=== PATIENT | female | born 1980 | race Caucasian/White ===

== ENCOUNTER 2017-01-14 07:15 | Outpatient (CLI) | payer MEDICAID ==
[~2017-01-14] VITALS: Ht 142.2 cm; Wt 71.5 kg
[2017-01-14] MEDS ORDERED: PREN-93 PO (07:28)
[2017-01-14 07:29] VITALS: Ht 142.2 cm; Wt 71.5 kg
[2017-01-14 07:30] VITALS: BP 110/65; PULSE 81; RESP 18
[2017-01-14] MEDS ORDERED: LACTATED RINGER'S 1,000 ML IV ONE (08:00)
--- NOTE | 2017-01-14 08:38 | RADRPT ---
PROCEDURE: Biophysical profile CLINICAL INDICATION: Contractions. Clinical estimate gestational age is 34 weeks 2 days with estimat ed date of delivery 02/23/2017 TECHNIQUE: Color and mueller-scale ultrasound images of an intrauterine gestation were obtained. COMPARISON: None available FINDINGS: A single live intrauterine gestation is identified in cephalic position with an estimated hear t rate of 144 beats per minute. The placenta is located anteriorly and is grade II. SUKHDEV is 11.12 cm. movement 2/2. tone 2/2. breathing movement 2/2. Qualitative AFV 2/2 Total biophysical profile 09/20 IMPRESSION: 09/20 biophysical profile. RPTAT: HJES .Reymundo Perez MD, Date Time Electronically viewed and signed by .Reymundo Perez MD, on 01/14/2017 08:38 .S/
[2017-01-14 11:01] LABS: ADD UMIC YES; UR ASCORBIC ACID NEGATIVE (NEGATIVE); UR BILIRUBIN (Dip) NEGATIVE (NEGATIVE); UR BLOOD (Dip) 2+ mg/dL (NEGATIVE); UR CLARITY CLEAR (CLEAR); UR COLOR YELLOW (YELLOW); UR GLUCOSE (Dip) NEGATIVE (NEGATIVE); UR KETONES (Dip) NEGATIVE (NEGATIVE); UR LEUKOCYTE ESTERASE (Dip) 3+ Leu/ul (NEGATIVE); UR NITRITE (Dip) NEGATIVE (NEGATIVE); UR RBC 2 /HPF (0-5); UR SPECIFIC GRAVITY (Dip) 1.009 (1.003-1.030); UR SQUAMOUS EPITHELIAL CELL FEW /HPF (FEW); UR TOTAL PROTEIN (Dip) NEGATIVE (NEGATIVE); UR UROBILINOGEN (Dip) NEGATIVE (NEGATIVE)
--- NOTE | 2017-01-14 11:14 | TRIAGE ---
OB Triage Datetime Report Generated by CPN: 01/14/2017 11:14 Datetime: 01/14/2017 10:30 Stage of : OB Triage Maternal Assessment Level of Consciousness: Fully Conscious Labor Evaluation Frequency: 4-10 Monitor Mode: External Duration (sec)2399: 40-100 Quality: Moderate Resting Tone Bedias: Relaxed Heart Rate FHR Baseline Rate: 145 Monitor Mode: External US Variability: Moderate 6-25 bpm Accelerations: 15X15 Decelerations: Variable Pain Assessment Pain Scale: 0 Pain Goal: 3 Membrane Status: Intact Vaginal Bleeding: None Datetime: 01/14/2017 09:30 Stage of : OB Triage Maternal Assessment Level of Consciousness: Fully Conscious Labor Evaluation Frequency: 3-10 Monitor Mode: External Duration (sec)2399: 50-110 Quality: Moderate Resting Tone Bedias: Relaxed Heart Rate FHR Baseline Rate: 145 Monitor Mode: External US Variability: Moderate 6-25 bpm Accelerations: 15X15 Decelerations: Variable Pain Assessment Pain Scale: 0 Pain Goal: 3 Membrane Status: Intact Vaginal Bleeding: None Datetime: 01/14/2017 08:40 Vaginal Exam Dilatation (cms): 0.0 Station: -3 Exam By: MANSIEMANI/DEDEAN Vaginal Bleeding: Normal Show Cervix, Consistency: Soft Cervix, Position: Midposition Datetime: 01/14/2017 08:30 Stage of : OB Triage Maternal Assessment Level of Consciousness: Fully Conscious Labor Evaluation Frequency: 1-10 Monitor Mode: External Quality: Moderate Resting Tone Bedias: Relaxed Heart Rate FHR Baseline Rate: 145 Monitor Mode: External US Variability: Moderate 6-25 bpm Accelerations: 15X15 Decelerations: Variable Pain Assessment Pain Scale: 0 Pain Goal: 3 Membrane Status: Intact Vaginal Bleeding: None Datetime: 01/14/2017 07:25 Assessment Type: Triage Maternal Assessment Level of Consciousness: Fully Conscious DTR's/Clonus: DTRs 2+; No Clonus Headache: Denies Blurred Vision: No Respiratory Effort: Unlabored; Regular Rhythm; Equal Expansion Breath Sounds, Left: Clear and Equal Breath Sounds, Right: Clear and Equal Nausea/Vomiting: Denies RUQ Epigastric Pain: Denies Lower Extremities Edema: None Degree: None Upper Extremities Edema: None Degree: None Facial Edema: None Fall Risk Assessment History of Falling: (0) No Secondary Diagnosis: (0) No Ambulatory Aid: (0) Bedrest/Nurse Assist IV Therapy: (0) No Gait: (0) Normal/Bedrest/Immobile Mental Status: (0) Oriented to Own Ability Fall Score: 0 Fall Risk Score Definition: No Risk: No action required Datetime: 01/14/2017 07:24 Time of Arrival: 01/14/2017 07:07 EGA: 34.2 Arrived By: Ambulatory Arrived From: Home Chief Complaint: PT HERE C/O UC'S AND SPOTTING Movement: Present Contractions: Irregular Rupture of Membranes: Denies Vaginal Bleeding: None Vaginal Discharge: Present Recent Sexual Intercouse: Yes Abdominal Trauma: Not Applicable Patient Complaints: Contractions; Cramping; Back Pain Time Provider Notified: 01/14/2017 07:45 Provider Notified: SKYLAR Initial Plan: IV HYDRATION/BPP/SVE Datetime: 01/14/2017 07:21 Monitor Mode: External Monitor Mode: External US
[2017-01-14] MEDS ORDERED: NITR-58 PO (11:19)
--- NOTE | 2017-01-14 12:12 | CONS ---
Date/Time of Note Date/Time of Note DATE: 01/14/17 TIME: 12:00 Consultation Date/Type/Reason Admit Date/Time January 14, 2017 OB triage consult This patient is 36 years old 3 para 1 1 living 1 with a spontaneous vaginal delivery on the first . Her estimated date of confinement is 02/23/2017 which makes her 34 weeks and 2 days today. She came to triage complaining of a vaginal spotting and uterine contractions. On examination she is a well-developed well-nourished patient at the third trimester. Her abdomen is soft ,very few contractions f,etal heart tone is normal with good variability occasional acceleration no decelerations. No CVA tenderness. Her general vital signs appears to be normal with blood pressure 110/65, pulse rate of 81, respiration 18, temperature 98.7, oxygen saturation at the room temperature was 98%. On questioning she admits that she did have a intercourse last night On pelvic examination the cervix was closed ,thick and high with intact membranes no true evidence of vaginal bleeding Reason for Consultation Laboratory Tests Test 01/14/17 07:20 Urine Color YELLOW Urine Clarity CLEAR Urine pH 7.0 Urine Specific Vance 1.009 Urine Ketones NEGATIVEmg/dL Urine Nitrite NEGATIVEmg/dL Urine Bilirubin NEGATIVEmg/dL Urine Urobilinogen NEGATIVEmg/dL Urine Leukocyte Esterase 3+Lexi/ul Urine Microscopic RBC 2/HPF Urine Microscopic WBC 14/HPF Urine Squamous Epithelial Cells FEW/HPF Urine Hemoglobin 2+mg/dL Urine Glucose NEGATIVEmg/dL Urine Total Protein NEGATIVEmg/dl Current Medications Medications (Trade) Dose Ordered Sig/Boby Route PRN Reason Start Time Stop Time Status Last Admin Dose Admin Lactated Ringer's (Lr) 1,000 ml @ 1,000 mls/hr Q1H ONCE IV 01/14/17 08:00 01/14/17 08:59 DC 01/14/17 08:14 1,000 MLS/HR Constitutional: No chills, No diaphoresis, No disoriented, No febrile, No improved, No no complaints, No other, No poor po, No requiring IVF, No requiring O2 Eyes: No discharge, No no complaints, No other, No pain, No redness, No visual change ENT: No bleeding, No congestion, No discharge, No dysphagia, No no complaints, No other, No pain, No sore throat Respiratory: No cough, No no complaints, No other, No pain, No pleuritic pain, No shortness of breath, No sputum, No wheezing Cardiovascular: No chest pain, No edema, No lightheadedness, No no complaints, No orthopenea, No other, No palpitations, No paroxysmal nocturnal dyspnea Gastrointestinal: No blood, No constipation, No decreased appetite, No diarrhea , No flatus, No nausea, No no complaints, No other, No pain, No passing stool, No vomiting Genitourinary: other (As I mentioned on pelvic examination she did not have any evidence of rupture membranes), No bleeding, No discharge, No dysuria, No flank pain, No hematuria, No no complaints Musculoskeletal: No back pain, No bone/joint pain, No neck pain, No no complaints, No other, No restricted range of motion, No swelling Skin: No bruising, No erythema, No laceration, No no complaints, No other, No pruritis, No rash, No skin lesions Neurologic: No confusion, No dizziness, No focal-weakness, No headache, No no complaints, No other, No seizure, No syncope Additional Comments Her urinalysis report shows 3+ leukocyte Estrace and 14 WBC 2+ blood On ultrasound study the report was single live intrauterine in the cephalic presentation ,placenta was anterior grade 2 ,no evidence of placenta previa or abruption. Her amniotic fluid index was reported 11.12 cm ,biophysical profile of 8/8. . With a diagnosis of urinary tract infection she was placed on Macrobid 100 mg twice daily and she was instructed to contact her a&p mechanic to check on the result of the culture sensitivity of urine and if necessary to change the antibiotic accordingly end of dictation thank you Past Surgical History Past Surgical Hx: no surgical history Social History Smoking Status: Never smoker Exam/Review of Systems Vital Signs Vitals Vital Signs Date Time Temp Pulse Resp B/P Pulse Ox O2 Delivery O2 Flow Rate FiO2 01/14/17 07:30 98.7 81 18 110/65 98 Room Air Results Results 24 hrs Laboratory Tests Test 01/14/17 07:20 Urine Color YELLOW Urine Clarity CLEAR Urine pH 7.0 Urine Specific Vance 1.009 Urine Ketones NEGATIVE Urine Nitrite NEGATIVE Urine Bilirubin NEGATIVE Urine Urobilinogen NEGATIVE Urine Leukocyte Esterase 3+ H Urine Microscopic RBC 2 Urine Microscopic WBC 14 H Urine Squamous Epithelial Cells FEW Urine Hemoglobin 2+ H Urine Glucose NEGATIVE Urine Total Protein NEGATIVE FOROOHAR,HESHMAT MD Jan 14, 2017 12:11
== END 2017-01-14 11:10 | disposition home or self-care (01) ==
LOC: OBT 07:15 → L-D 07:16 → OBT 11:10
PROVIDERS: ATTEND Obstetrics & Gynecology
DX: O62.9 Abnormality of forces of labor, unspecified (principal); O20.8 Other hemorrhage in early pregnancy; Z3A.34 34 weeks gestation of pregnancy
CPT/HCPCS: 36415; 76818; 81001; 87086; 96360; J7120; Z7500; G0463

== ENCOUNTER 2017-01-18 05:26 | Inpatient (IN) | payer MEDICAID ==
[~2017-01-18] VITALS: Ht 139.7 cm; Wt 72.2 kg
[~2017-01-18 05:26] MED LIST: NITR-58 PO; PREN-93 PO
[2017-01-18 05:45] VITALS: BP 117/77; PULSE 96; RESP 18; Ht 139.7 cm; Wt 72.2 kg
[2017-01-18] MEDS ORDERED: LACTATED RINGER'S 1,000 ML IV ONE (06:00)
[2017-01-18] MEDS ORDERED: BETAMET NA PHOS/AC(6 MG/ML) 5ML INJ IM SCH (06:30)
--- NOTE | 2017-01-18 06:37 | RADRPT ---
PROCEDURE: OB ultrasound for biophysical profile CLINICAL INDICATION: Contractions TECHNIQUE: Multiple sonographic images of the pelvis were obtained. Transabdominal views of the g ravid uterus are available for review. The images were reviewed on a PACS workstation. COMPARISON: Biophysical profile dated 01/14/2017 FINDINGS: breathing movement = 2/2 tone = 2/2 motion = 2/2 SUKHDEV = 0/2 SUKHDEV = 5.5 cm Single live intrauterine with cardiac activity of 159 bpm. position is cephal ic. The placenta is anterior. IMPRESSION: 1. Single live intrauterine gestation. 2. Biophysical profile = 07/21. SUKHDEV = 0/2 3. SUKHDEV = 5.5 cm. The SUKHDEV previously measured 11.2 cm RPTAT: HH .Vidhya Merritt MD, Date Time Electronically viewed and signed by .Vidhya Merritt MD, MD on 01/18/2017 06:37 .G/
[2017-01-18] MEDS ORDERED: LACTATED RINGER'S 1,000 ML IV SCH ×2 (07:00→07:30)
[2017-01-18] MEDS ORDERED: OXYTOCIN 30 UNITS/LR 500 ML IV PRN ×2 (07:30→12:00)
[2017-01-18] MEDS ORDERED: IBUPROFEN 600 MG TAB PO PRN (07:30)
[2017-01-18] MEDS ORDERED: HYDROCODONE/APAP (5/325) TAB PO PRN (07:30)
[2017-01-18] MEDS ORDERED: MISOPROSTOL 200 MCG TAB PR PRN ×2 (07:30→12:00)
[2017-01-18] MEDS ORDERED: MAGNESIUM SULFATE 4 GM/100 ML 100 ML IVPB ONE (07:30)
[2017-01-18] MEDS ORDERED: AMPICILLIN 2 GM/NS (PMX) 100 ML IV ONE (07:30)
[2017-01-18] MEDS ORDERED: LIDOCAINE 1% (MPF) 30 ML INJ INJ PRN (07:30)
[2017-01-18] MEDS ORDERED: OXYTOCIN 30 UNITS/LR 500 ML IV SCH ×3 (07:30→11:36)
[2017-01-18] MEDS ORDERED: BUTORPHANOL 2 MG INJ IV PRN (07:30)
[2017-01-18] MEDS ORDERED: MAGNESIUM SULFATE 20 GM/500 ML 500 ML IV SCH (07:30)
[2017-01-18] MEDS ORDERED: METHYLERGONOVINE 0.2 MG INJ IM PRN ×2 (07:30→12:00)
[2017-01-18] MEDS ORDERED: CARBOPROST 250 MCG INJ IM PRN ×2 (07:30→12:00)
--- NOTE | 2017-01-18 07:47 | HP ---
Date/Time of Note Date/Time of Note DATE: 01/18/17 TIME: 07:11 OB - History Hx of Present Free Text/Dictation 36y.o A2 at 34w6d present to triage with c/o uc's and leaking fluid since 329 this am initial VE 2-3 /70%/-2 no record is available . ROM plus positive EFM revealed uc 3-4min apart admit for expectant management with BMZ with MgSo4 Chief Complaint: leaking with uc's Estimated Due Date: Feb 23, 2017 : 4 Para: 1 Spontaneous : 1 Therapeutic : 1 Care: Other Ultrasounds: Other Obstetrical Complications: None Medical Complications: None Past Family/Social History * Past Medical, Surgical, Family and Obstetric Histories reviewed from chart. Blood Type: Unknown Rubella: unknown RPR/VDRL: Unknown GBS Status: Unknown HBsAG: Unknown OB Admission Exam Vital Signs Vital Signs Vital Signs Date Time Temp Pulse Resp B/P Pulse Ox O2 Delivery O2 Flow Rate FiO2 01/18/17 05:45 98.1 96 18 117/77 Room Air Physical Exam HEENT: WNL Heart: Rhythm Normal Lungs: Clear, Equal Abdomen: WNL Extremities: Normal Reflexes: Normal Cervical Dilatation: 3cm Effacement: 75% Station: -2 Membranes: Ruptured Amniotic Fluid: Clear Heart Rate: 150's Accelerations: Accelerations Present Decelerations: No Decelerations Varibility: Minimum Contractions on Admission: < 5 Minutes Apart Intensity: Mild OB Assessment/Plan Reason for admission: rupture of membranes Other Assessment: IUP 34w6d PPROM Plan: Expectant Management Other plan: BMZx2 Mg So4 ampicillin D/C nitrofurantoin SCOTT HODGE MD Jan 18, 2017 07:47
[2017-01-18 07:50] LABS: ABNORMAL IP MESSAGE 1; BASOPHILS % 0.3 % (0.0-2.0); EOSINOPHILS # 0.3 10^3/ul (0.0-0.5); EOSINOPHILS % 3.4 % (0.0-7.0); HEMATOCRIT 41.5 % (37.0-47.0); LYMPHOCYTES # 1.2 10^3/ul (0.8-2.9); LYMPHOCYTES % 15.5 % (15.0-51.0); MEAN CORPUSCULAR HEMOGLOBIN 29.1 pg (29.0-33.0); MEAN CORPUSCULAR HGB CONC 33.7 g/dl (32.0-37.0); MEAN CORPUSCULAR VOLUME 86.3 fl (82.0-101.0); MONOCYTE # 0.5 10^3/ul (0.3-0.9); MONOCYTES % 6.3 % (0.0-11.0); NEUTROPHIL # 5.6 10^3/ul (1.6-7.5); NEUTROPHILS % 73.4 % (39.0-77.0); PLATELET COUNT 127 10^3/UL (140-415); POSITIVE DIFF @See below; RED BLOOD COUNT 4.81 10^6/ul (4.20-5.40); RED CELL DISTRIBUTION WIDTH 13.2 % (11.5-14.5); WHITE BLOOD COUNT 7.6 10^3/ul (4.8-10.8)
--- NOTE | 2017-01-18 07:50 | TRIAGE ---
OB Triage Datetime Report Generated by CPN: 01/18/2017 07:50 Datetime: 01/18/2017 06:15 Pain Assessment Pain Scale: 9 Pain Presence: Intermittent Pain Type: Contraction Pain Location: Abdomen Pain Goal: 2 Pain Relief Measures: Comfort Measures Datetime: 01/18/2017 06:00 Vaginal Exam Dilatation (cms): 2.5 Effacement (%): 70 Station: -2 Membrane Status: Ruptured Membranes Rupture Method: Spontaneous Amniotic Fluid Color: Bloody Amniotic Fluid Amount: Small Amniotic Fluid Odor: Normal Pool: Positive Nitrazine: Positive Datetime: 01/18/2017 05:36 Stage of : OB Triage Assessment Type: Triage Maternal Assessment Level of Consciousness: Fully Conscious DTR's/Clonus: DTRs 2+; No Clonus Headache: Denies Blurred Vision: No Respiratory Effort: Unlabored; Regular Rhythm; Equal Expansion Breath Sounds, Left: Clear and Equal Breath Sounds, Right: Clear and Equal Nausea/Vomiting: Denies RUQ Epigastric Pain: Denies Lower Extremities Edema: None Degree: None Upper Extremities Edema: None Degree: None Facial Edema: None Temperature Route: Oral Pain Assessment Pain Scale: 9 Pain Presence: Intermittent Pain Type: Contraction Pain Location: Abdomen Pain Goal: 2 Pain Relief Measures: Comfort Measures Datetime: 01/18/2017 05:31 Time of Arrival: 01/18/2017 05:20 EGA: 34.6 Arrived By: Wheelchair Arrived From: Home Chief Complaint: CONTRACTIONS, LEAKING Movement: Present Contractions: Regular Time Contractions Began: 01/18/2017 03:00 Rupture of Membranes: Unsure Vaginal Bleeding: Scant Vaginal Discharge: Denies Recent Sexual Intercouse: Denies Abdominal Trauma: Not Applicable Patient Complaints: Contractions Time Provider Notified: 01/18/2017 05:50 Provider Notified: SKYLAR Initial Plan: CEFM, ROM+, SVE, IV HYDRATION, BPP, BETAMETHASONE Datetime: 01/14/2017 07:25 Fall Risk Assessment Fall Score: 0 Fall Risk Score Definition: No Risk: No action required Datetime: 01/14/2017 07:24 EGA: 34.2
[2017-01-18 08:09] LABS: INR 0.85; PROTIME 11.7 Sec (11.9-14.9); PT RATIO 0.9
--- NOTE | 2017-01-18 09:54 | LDN ---
Date/Time of Note Date/Time of Note DATE: 01/18/17 TIME: 09:53 Delivery Summary Weeks of Gestation 34+ Placenta Delivered: Spontaneously Meconium: none Episiotomy: No Perineal laceration: 1 Anesthesia type: Local Estimated blood loss: 200 Sponge & Needle done & correct: Yes All needle counts correct: Yes Any foreign bodies felt in the: No Problems: Delivery Information Apgars 1 Minute: 8 5 Minute: 9 Suctioning Nose & mouth suctioned at taylor: Yes Delee suction performed: Yes Umbilical Cord Umbilical cord with: 3 Vessels Cord presentations: no nuchal cord Cord Blood was obtained: Yes Mother & Baby Disposition Disposition Mom & Baby to Maternity; Good: Yes Baby to NICU: Yes VICTORIA CHENG M.D. Jan 18, 2017 09:54
[2017-01-18] MEDS ORDERED: AMPICILLIN 1 GM/NS (PMX) 50 ML IV SCH (11:30)
[2017-01-18] MEDS: LACTATED RINGER'S 1,000 ML IV* SCH ×2 (11:36→22:49)
[2017-01-18 11:48] LABS: BARBITURATES NEGATIVE (NEGATIVE); BENZODIAZEPINES NEGATIVE (NEGATIVE); CANNABINOIDS NEGATIVE (NEGATIVE); COCAINE NEGATIVE (NEGATIVE); OPIATES NEGATIVE (NEGATIVE)
[2017-01-18 11:55] VITALS: BP 109/63; PULSE 76; RESP 18
[2017-01-18] MEDS ORDERED: LANOLIN 7 GM TUBE TOP PRN (12:00)
[2017-01-18] MEDS ORDERED: WITCH HAZEL/GLYCERIN PAD PR PRN (12:00)
[2017-01-18] MEDS: IBUPROFEN 600 MG TAB PO SCH ×2 (12:00→17:24)
[2017-01-18] MEDS ORDERED: OXYCODONE/ASPIRIN (4.88/325) TAB PO PRN ×2 (12:00)
[2017-01-18] MEDS ORDERED: BENZOCAINE 20% 56 ML SPRAY TOP PRN (12:00)
[2017-01-18 12:55] VITALS: BP 99/66; PULSE 74; RESP 18
[2017-01-18 15:00] VITALS: BP 100/57; PULSE 79; RESP 18
[2017-01-18 20:00] VITALS: BP 98/54; PULSE 82; RESP 19
[2017-01-19] MEDS: IBUPROFEN 600 MG TAB PO SCH ×4 (00:09→17:43)
[2017-01-19 00:30] VITALS: BP 106/62; PULSE 61; RESP 19
[2017-01-19] MEDS: LACTATED RINGER'S 1,000 ML IV* SCH (03:36)
[2017-01-19 04:45] VITALS: BP 107/63; PULSE 63; RESP 19
[2017-01-19 08:30] VITALS: BP 93/65; PULSE 77; RESP 19
[2017-01-19] MEDS ORDERED: INFLUENZA VIRUS VACCINE 0.5 ML (DISPENSING) IM* ONE (09:00)
[2017-01-19 10:05] LABS: ABNORMAL IP MESSAGE 1; BASOPHILS % 0.3 % (0.0-2.0); EOSINOPHILS # 0.3 10^3/ul (0.0-0.5); EOSINOPHILS % 2.1 % (0.0-7.0); HEMATOCRIT 37.9 % (37.0-47.0); HEMOGLOBIN 12.7 g/dl (12.0-16.0); LYMPHOCYTES # 1.9 10^3/ul (0.8-2.9); LYMPHOCYTES % 14.7 % (15.0-51.0); MEAN CORPUSCULAR HEMOGLOBIN 29.3 pg (29.0-33.0); MEAN CORPUSCULAR HGB CONC 33.5 g/dl (32.0-37.0); MEAN CORPUSCULAR VOLUME 87.5 fl (82.0-101.0); MONOCYTE # 0.8 10^3/ul (0.3-0.9); MONOCYTES % 6.5 % (0.0-11.0); NEUTROPHIL # 9.5 10^3/ul (1.6-7.5); NEUTROPHILS % 74.9 % (39.0-77.0); PLATELET COUNT 138 10^3/UL (140-415); RED BLOOD COUNT 4.33 10^6/ul (4.20-5.40); RED CELL DISTRIBUTION WIDTH 13.2 % (11.5-14.5); WHITE BLOOD COUNT 12.7 10^3/ul (4.8-10.8)
[2017-01-19 10:21] LABS: POSITIVE DIFF @See below
[2017-01-19 16:00] VITALS: BP 99/53; PULSE 80; RESP 20
--- NOTE | 2017-01-19 17:26 | PN ---
Date/Time of Note Date/Time of Note DATE: 01/19/17 TIME: 17:23 OB Subjective Subjective Subjective Post day 1 Patient is doing well, Ambulatory She is afebrile Abdomen is soft , Fundus is firm Moderate amount of lochia Breasts are soft, Nipples are intact No calf tenderness. Laboratory Tests Test 01/19/17 08:43 01/19/17 09:40 Bedside Glucose 108mg/dL White Blood Count 12.710^3/ul Red Blood Count 4.3310^6/ul Hemoglobin 12.7g/dl Hematocrit 37.9% Mean Corpuscular Volume 87.5fl Mean Corpuscular Hemoglobin 29.3pg Mean Corpuscular Hemoglobin Concent 33.5g/dl Red Cell Distribution Width 13.2% Platelet Count 15110^3/UL Mean Platelet Volume 14.0fl Neutrophils % 74.9% Lymphocytes % 14.7% Monocytes % 6.5% Eosinophils % 2.1% Basophils % 0.3% Nucleated Red Blood Cells % 0.0/100WBC Neutrophils # 9.510^3/ul Lymphocytes # 1.910^3/ul Monocytes # 0.810^3/ul Eosinophils # 0.310^3/ul Basophils # 0.010^3/ul Nucleated Red Blood Cells # 0.010^3/ul Current Medications Medications (Trade) Dose Ordered Sig/Boby Route PRN Reason Start Time Stop Time Status Last Admin Dose Admin Lactated Ringer's 1,000 ml @ 1,000 mls/hr Q1H ONCE IV 01/18/17 06:00 01/18/17 06:59 DC 01/18/17 06:22 Lactated Ringer's (Lr) 1,000 ml @ 125 mls/hr Q8H IV 01/18/17 07:00 01/18/17 11:49 DC 01/18/17 07:35 Betamethasone Acet/Betameth SodPhos 12 mg 12 mg Q24H IM 01/18/17 06:30 01/18/17 11:49 DC 01/18/17 06:46 Magnesium Sulfate 100 ml @ 200 mls/hr ONCE ONCE IVPB 01/18/17 07:30 01/18/17 07:59 DC Magnesium Sulfate 500 ml @ 50 mls/hr Q10H IV 01/18/17 07:30 01/18/17 11:49 DC Lactated Ringer's 1,000 ml @ 125 mls/hr Q8H IV 01/18/17 07:30 01/18/17 11:49 DC Ampicillin 100 ml @ 100 mls/hr ONCE ONCE IV 01/18/17 07:30 01/18/17 08:29 DC 01/18/17 08:40 Ampicillin (Ampicillin 1 Gm/ NS (Pmx)) 50 ml @ 100 mls/hr Q4H IV 01/18/17 11:30 01/18/17 11:49 DC Butorphanol Tartrate (Stadol) 2 mg Q2H PRN IV PAIN 01/18/17 07:30 01/18/17 11:49 DC Lidocaine 30 ml 30 ml ONCE PRN INJ EPISIOTOMY/TEARING 01/18/17 07:30 01/18/17 11:49 DC Oxytocin/Lactated Ringer's 500 ml @ 500 mls/hr ONCE POST IV 01/18/17 07:30 01/18/17 11:49 DC 01/18/17 09:08 Oxytocin/Lactated Ringer's 500 ml @ 125 mls/hr POST IV 01/18/17 07:30 01/18/17 11:49 DC 01/18/17 09:09 Ibuprofen (Motrin) 600 mg ONCE PRN PO Mild Pain (Pain Score 1-3) 01/18/17 07:30 01/18/17 11:49 DC 01/18/17 09:43 Acetaminophen/ Hydrocodone Bitart 2 tab 2 tab ONCE PRN PO Moderate to Severe Pain (4-10) 01/18/17 07:30 01/18/17 11:49 DC Oxytocin/Lactated Ringer's 500 ml @ 0 mls/hr ONCE PRN IV For Hemorrhage Management 01/18/17 07:30 01/18/17 11:50 DC Methylergonovine Maleate (Methergine) 0.2 mg ONCE PRN IM VAGINAL BLEEDING 01/18/17 07:30 01/18/17 11:50 DC Carboprost Tromethamine (Hemabate) 250 mcg ONCE PRN IM VAGINAL BLEEDING 01/18/17 07:30 01/18/17 11:50 DC Misoprostol 1000 mcg 1,000 mcg ONCE PRN ID VAGINAL BLEEDING 01/18/17 07:30 01/18/17 11:50 DC Oxytocin/Lactated Ringer's 500 ml @ 50 mls/hr Q10H IV 01/18/17 11:36 01/18/17 21:35 DC 01/18/17 12:17 Lactated Ringer's (Lr) 1,000 ml @ 125 mls/hr Q8H IV* 01/18/17 11:36 01/19/17 09:01 DC 01/18/17 22:49 Ibuprofen (Motrin) 600 mg Q6 PO 01/18/17 12:00 01/19/17 12:09 Oxycodone/Aspirin (Percodan) 1 tab Q3H PRN PO PAIN LEVEL 1-5 01/18/17 12:00 Oxycodone/Aspirin (Percodan) 2 tab Q3H PRN PO PAIN LEVEL 6-10 01/18/17 12:00 Witch Roxanna/ Glycerin (Tucks Pads) 1 pad BEDSIDE MEDICATION PRN ID HEMORRHOID/EPISIOTMY PAIN 01/18/17 12:00 01/18/17 12:15 Benzocaine (Dermoplast [place]) 1 spray BEDSIDE MEDICATION PRN TOP HEMORRHOID/EPISIOTMY PAIN 01/18/17 12:00 01/18/17 12:15 Lanolin 1 applic 1 applic BEDSIDE MEDICATION PRN TOP BEDSIDE FOR KALYAN TO NIPPLES 01/18/17 12:00 01/18/17 12:15 Oxytocin/Lactated Ringer's 500 ml @ 0 mls/hr ONCE PRN IV For Hemorrhage Management 01/18/17 12:00 Methylergonovine Maleate (Methergine) 0.2 mg ONCE PRN IM VAGINAL BLEEDING 01/18/17 12:00 Carboprost Tromethamine (Hemabate) 250 mcg ONCE PRN IM VAGINAL BLEEDING 01/18/17 12:00 Misoprostol (Cytotec) 1,000 mcg ONCE PRN ID VAGINAL BLEEDING 01/18/17 12:00 Influenza Virus Vaccine (Fluzone) 0.5 ml ONCE ONCE IM* 01/19/17 09:00 01/19/17 09:01 DC 01/19/17 17:09 Perineum is healing well. Breast feeding the new born. TODD CAMACHO MD Jan 19, 2017 17:26
[2017-01-19 20:00] VITALS: BP 98/52; PULSE 84; RESP 20
[2017-01-20] MEDS: IBUPROFEN 600 MG TAB PO SCH ×3 (00:45→12:00)
[2017-01-20 04:45] VITALS: BP 98/58; PULSE 88; RESP 20
[2017-01-20 08:00] VITALS: BP_SYST 113; BP_SYST 118; BP_DIAS 69; BP_DIAS 74; PULSE 66; PULSE 75; RESP 18
[2017-01-20 08:30] VITALS: BP 113/69; PULSE 75; RESP 18
--- NOTE | 2017-01-20 08:58 | QN ---
Documentation Comment PPD#2 is stable afebrile tolerates diet NO VB +BM +Voids No sign of Depression VS stable Gen NAD Abd soft NT ND Genitalaia No blood at perinium --->discharge plan today VICTORIA CHENG M.D. Jan 20, 2017 08:58
== END 2017-01-20 12:09 | disposition home or self-care (01) | DRG 775 ==
LOC: L-D 05:26 → OBT 05:26 → L-D 06:54 → OBT 07:10 → PP1 12:09
PROVIDERS: ADMIT Obstetrics & Gynecology; ATTEND Obstetrics & Gynecology
PROC: 10E0XZZ Delivery of Products of Conception, External Approach (ICD-10-PCS; principal; 2017-01-18)
PROC: 3E033VJ Introduction of Other Hormone into Peripheral Vein, Percutaneous Approach (ICD-10-PCS; 2017-01-18)
PROC: 0HQ9XZZ Repair Perineum Skin, External Approach (ICD-10-PCS; 2017-01-18)
DX: O60.14X0 Preterm labor third trimester with preterm delivery third trimester, not applicable or unspecified (principal); O70.0 First degree perineal laceration during delivery; Z3A.35 35 weeks gestation of pregnancy; Z37.0 Single live birth
CPT/HCPCS: 76818; 80307; 82962; 84112; 85025; 85610; 85730; 86592; 86900; 86901; 87086; 87340; 90686; 99464; G0463; J0290; J0702; J2590; J3475; J7120

== ENCOUNTER 2017-12-25 08:38 | Emergency (ER) | END 2017-12-25 10:49 | disposition home or self-care (01) ==

== ENCOUNTER 2018-05-05 13:08 | Inpatient (IN) | payer MEDICAID ==
[~2018-05-05] VITALS: Ht 147.3 cm; Wt 70.0 kg
[2018-05-05 13:34] VITALS: BP 108/62; PULSE 85; RESP 20; Ht 147.3 cm; Wt 70.0 kg
[2018-05-05] MEDS ORDERED: PREN1TAB13 PO (13:37)
[2018-05-05] MEDS ORDERED: LACTATED RINGER'S 1,000 ML IV SCH (14:00)
[2018-05-05] MEDS ORDERED: TERBUTALINE 1 MG/ML INJ SC ONE (14:00)
--- NOTE | 2018-05-05 15:39 | HP ---
Date/Time of Note Date/Time of Note DATE: 05/05/18 TIME: 15:37 OB - History Hx of Present Free Text/Dictation @30+wks GA with CTXs : 5 Para: 2 Care: Good Care Ultrasounds: Normal mid trimester US Obstetrical Complications: None Medical Complications: None Past Family/Social History * Past Medical, Surgical, Family and Obstetric Histories reviewed from chart. OB Admission Exam Vital Signs Vital Signs Vital Signs Date Temp Pulse Resp B/P (MAP) Pulse Ox O2 O2 Flow FiO2 Time Delivery Rate 05/05/18 98.5 85 20 108/62 Room Air 13:34 (77) Physical Exam Abdomen: WNL Cervical Dilatation: None Effacement: 0% Station: Ballotable Membranes: Intact Accelerations: Accelerations Present Decelerations: No Decelerations Varibility: Moderate Contractions on Admission: 6-10 Minutes Apart OB Assessment/Plan Reason for admission: observation Other Assessment: PMH Denies PSH Denies Allergy NKDA Plan: Expectant Management Other plan: IV Hydration Clsoe Observation Steroids VICTORIA CHENG M.D. May 05, 2018 15:39
[2018-05-05] MEDS: LACTATED RINGER'S 1,000 ML IV SCH ×4 (15:50→20:12)
[2018-05-05] MEDS: BETAMET NA PHOS/AC(6 MG/ML) 2 ML INJ SYG IM SCH (16:50)
--- NOTE | 2018-05-05 19:42 | TRIAGE ---
OB Triage Datetime Report Generated by CPN: 05/05/2018 19:42 Datetime: 05/05/2018 18:53 Maternal Assessment Level of Consciousness: Fully Conscious DTR's/Clonus: DTRs 2+ Headache: Denies Blurred Vision: No Nausea/Vomiting: Denies RUQ Epigastric Pain: Denies Facial Edema: None Labor Evaluation Frequency: NONE Pattern: Normal: <= 5 Contractions in 10 Minutes Resting Tone [place]: Relaxed Heart Rate FHR Baseline Rate: 150 Monitor Mode: External US FHR Baseline Changes: No Baseline Change Variability: Minimal - Undetectable to <=5 bpm Decelerations: None Category: Category I Pain Assessment Pain Scale: 0 Pain Presence: None/Denies Pain Goal: 0 Vaginal Exam Membrane Status: Intact Datetime: 05/05/2018 18:00 Maternal Assessment Level of Consciousness: Fully Conscious DTR's/Clonus: DTRs 2+ Headache: Denies Blurred Vision: No Nausea/Vomiting: Denies RUQ Epigastric Pain: Denies Facial Edema: None Labor Evaluation Frequency: NONE Pattern: Normal: <= 5 Contractions in 10 Minutes Resting Tone [place]: Relaxed Heart Rate FHR Baseline Rate: 150 Monitor Mode: External US FHR Baseline Changes: No Baseline Change Variability: Minimal - Undetectable to <=5 bpm Accelerations: 10X10 Decelerations: Variable Category: Category I Pain Assessment Pain Scale: 0 Pain Presence: None/Denies Pain Goal: 0 Vaginal Exam Membrane Status: Intact Datetime: 05/05/2018 17:01 Maternal Assessment Level of Consciousness: Fully Conscious DTR's/Clonus: DTRs 2+ Headache: Denies Blurred Vision: No Nausea/Vomiting: Denies RUQ Epigastric Pain: Denies Facial Edema: None Labor Evaluation Frequency: OCCAS Monitor Mode: External Duration (sec)2399: 50 Quality: Mild Pattern: Normal: <= 5 Contractions in 10 Minutes Resting Tone [place]: Relaxed Heart Rate FHR Baseline Rate: 160 Monitor Mode: External US FHR Baseline Changes: No Baseline Change Variability: Minimal - Undetectable to <=5 bpm Accelerations: 10X10 Decelerations: None Category: Category I Pain Assessment Pain Scale: 3 Pain Presence: Intermittent Pain Type: Cramping Pain Location: Abdomen Pain Goal: 3 Vaginal Exam Membrane Status: Intact Datetime: 05/05/2018 16:31 Assessment Type: Admission Assessment Vaginal Bleeding: None Maternal Assessment Level of Consciousness: Fully Conscious DTR's/Clonus: DTRs 2+; No Clonus Headache: Denies Blurred Vision: No Respiratory Effort: Unlabored; Regular Rhythm; Equal Expansion Breath Sounds, Left: Clear and Equal Breath Sounds, Right: Clear and Equal Nausea/Vomiting: Denies RUQ Epigastric Pain: Denies Lower Extremities Edema: None Degree: None Upper Extremities Edema: None Degree: None Facial Edema: None Fall Risk Assessment History of Falling: (0) No Secondary Diagnosis: (0) No Ambulatory Aid: (0) Bedrest/Nurse Assist IV Therapy: (0) No Gait: (0) Normal/Bedrest/Immobile Mental Status: (0) Oriented to Own Ability Fall Score: 0 Fall Risk Score Definition: No Risk: No action required Labor Evaluation Frequency: IRREG Duration (sec)2399: 60 Quality: Moderate Pattern: Normal: <= 5 Contractions in 10 Minutes Resting Tone [place]: Relaxed Heart Rate FHR Baseline Rate: 150 Variability: Moderate 6-25 bpm Accelerations: 15X15 Decelerations: None Category: Category I Pain Assessment Pain Scale: 8 Pain Presence: Intermittent Pain Type: Contraction Pain Location: Abdomen Pain Goal: 3 Vaginal Exam Membrane Status: Intact Datetime: 05/05/2018 15:51 Maternal Assessment Level of Consciousness: Fully Conscious DTR's/Clonus: DTRs 2+ Headache: Denies Blurred Vision: No Nausea/Vomiting: Denies RUQ Epigastric Pain: Denies Facial Edema: None Labor Evaluation Frequency: 8 Monitor Mode: External Duration (sec)2399: 60-80 Quality: Moderate Pattern: Normal: <= 5 Contractions in 10 Minutes Resting Tone [place]: Relaxed Heart Rate FHR Baseline Rate: 155 Monitor Mode: External US FHR Baseline Changes: No Baseline Change Variability: Minimal - Undetectable to <=5 bpm Accelerations: 10X10 Decelerations: Variable Category: Category I Pain Assessment Pain Scale: 5 Pain Presence: Intermittent Pain Type: Contraction Pain Location: Abdomen Pain Goal: 2 Vaginal Exam Membrane Status: Intact Datetime: 05/05/2018 14:52 Maternal Assessment Level of Consciousness: Fully Conscious DTR's/Clonus: DTRs 2+ Headache: Denies Blurred Vision: No Nausea/Vomiting: Denies RUQ Epigastric Pain: Denies Facial Edema: None Labor Evaluation Frequency: Q 6 Monitor Mode: External Duration (sec)2399: 60 Quality: Moderate Pattern: Normal: <= 5 Contractions in 10 Minutes Resting Tone [place]: Relaxed Heart Rate FHR Baseline Rate: 155 Monitor Mode: External US FHR Baseline Changes: No Baseline Change Variability: Moderate 6-25 bpm Accelerations: 10X10 Decelerations: None Category: Category I Pain Assessment Pain Scale: 6 Pain Presence: Intermittent Pain Type: Contraction Pain Location: Abdomen Pain Goal: 3 Vaginal Exam Membrane Status: Intact Datetime: 05/05/2018 13:46 Time of Arrival: 05/05/2018 13:05 EGA: 30.1 Arrived By: Wheelchair Arrived From: Home Chief Complaint: UCS SINCE 0700 Movement: Present Contractions: Irregular Time Contractions Began: 05/05/2018 07:00 Contractions: 2-6 Rupture of Membranes: Denies Vaginal Bleeding: None Vaginal Discharge: Denies Recent Sexual Intercouse: Denies Abdominal Trauma: Not Applicable Patient Complaints: Contractions (Annotations: Data stored by CPN on behalf of user) Time Provider Notified: 05/05/2018 13:46 Provider Notified: DR CHENG Initial Plan: EFM,REPORT TO DR CHENG Datetime: 05/05/2018 13:22 Maternal Assessment Level of Consciousness: Fully Conscious DTR's/Clonus: DTRs 2+ Headache: Denies Blurred Vision: No Nausea/Vomiting: Denies RUQ Epigastric Pain: Denies Facial Edema: None Labor Evaluation Frequency: 3-6 Monitor Mode: External Duration (sec)2399: 60 Quality: Mild Pattern: Normal: <= 5 Contractions in 10 Minutes Resting Tone [place]: Relaxed Heart Rate FHR Baseline Rate: 150 Monitor Mode: External US FHR Baseline Changes: No Baseline Change Variability: Minimal - Undetectable to <=5 bpm Accelerations: 10X10 Decelerations: Variable Category: Category I Pain Assessment Pain Scale: 8 Pain Presence: Intermittent Pain Type: Contraction Pain Location: Abdomen Vaginal Exam Membrane Status: Intact
[2018-05-06] MEDS: LACTATED RINGER'S 1,000 ML IV SCH ×2 (04:04→13:11)
[2018-05-06] MEDS: PRENATAL VITAMIN PO SCH (08:53)
[2018-05-06] MEDS ORDERED: MAGNESIUM SULFATE 4 GM/100 ML 100 ML IVPB ONE (10:00)
[2018-05-06] MEDS: MAGNESIUM SULFATE 20 GM/500 ML 500 ML IV SCH ×2 (10:32→20:49)
--- NOTE | 2018-05-06 13:14 | QN ---
Documentation Comment 30+wks GA labor ,CTV NST reassuting [place] Irregualr CTXs Pelvic deferred -->Urine cultrue -->Mg -->Close Observation VICTORIA CHENG M.D. May 06, 2018 13:14
[2018-05-06] MEDS: BETAMET NA PHOS/AC(6 MG/ML) 2 ML INJ SYG IM SCH (16:55)
[2018-05-07] MEDS: LACTATED RINGER'S 1,000 ML IV SCH ×2 (02:09→14:09)
[2018-05-07] MEDS: MAGNESIUM SULFATE 20 GM/500 ML 500 ML IV SCH (06:58)
[2018-05-07] MEDS: PRENATAL VITAMIN PO SCH (08:28)
[2018-05-07] MEDS ORDERED: CEFAZOLIN 2 GM/50 ML (PMX) 50 ML IVPB ONE (13:30)
--- NOTE | 2018-05-07 14:02 | QN ---
Documentation Comment 30+wks GA labor VS stable NST reassuting [place] no CTXCTXs Pelvic deferred Urine culture ,prelim-->100k -->stop Mg -->Close Observation -->2 gram Ancef --->possible discharge tomorrow VICTORIA CHENG M.D. May 07, 2018 14:02
[2018-05-08] MEDS: LACTATED RINGER'S 1,000 ML IV SCH ×2 (05:04→16:42)
[2018-05-08] MEDS: PRENATAL VITAMIN PO SCH (08:44)
[2018-05-08] MEDS ORDERED: metroNIDAZOLE 500 MG TAB PO ONE (11:30)
[2018-05-08] MEDS: TERBUTALINE 1 MG/ML INJ SC PRN ×2 (11:39→16:59)
[2018-05-08] MEDS: NIFEdipine 10 MG CAP PO SCH (17:51)
--- NOTE | 2018-05-08 20:37 | PN ---
Date/Time of Note Date/Time of Note DATE: 05/08/18 TIME: 20:05 OB Subjective Subjective Subjective Date of admission 05/05/2018 Hospital day# 4 Patient seen and examined. She states good movement. She denies nausea, vomiting, shortness of breath, chest pain, headache, visual changes, vaginal b leeding or LOF. She is complaining of irregular uterine contractions OB Objective Objective Objective General: Patient appears well, alert and oriented, NAD, appropriate mood and affect ABD: gravid, soft, non-tender. Back: No CVA tenderness (B/L) LE: Mild edema. No clubbing, cyanosis, edema, thigh or calf tenderness bilaterally FHT: 135 bpm , moderate variability with acceleration, no deceleration-category I Contractions: Irreg OB Assessment/Plan Other plan: 37 years old with single intrauterine at 30 weeks and 3 days with QASIM of 07/13/2018 with threatened labor 1) PNC: -FHR: Reassuring. No sign of metabolic acidosis- Category I -Contractions: Irregular -Weekly weight -Continue vitamin, ferrous sulfate and calcium citrate -Tdap vaccine tomorrow 2) labor and history of delivery at 34 weeks: -Negative fibronectin, cervical length 3.1 -She has received magnesium sulfate and betamethasone x2. She is steroid benefited since 05/07/18. Again she has regular uterine contraction every 2-4 mi nutes since early this morning. IV fluids and terbutaline x2 given. Patient continued to have regular uterine contractions. Procardia 10 mg every 6 hours ordered. -Vaginal progesterone 200 mg every nigh -Perinatology and neonatology consult appreciated 3) GDM A1: She recently had a 3-hour GTT which was abnormal. Effect of gestational diabetes on and vice versa discussed in detail with patient. She expressed understanding. All of her questions answered. Check FBS and 2 hours postprandial with insulin sliding scale coverage. Anticipate elevated blood glucose due to receiving betamethasone in the next 3-4 days. Con sult with perioperative educator placed. 4) urine culture with more than 100,000 [place]: Metronidazole 500 mg every 12 hours due to labor started. 5) blood type O- PARUL TONG May 08, 2018 20:36
[2018-05-08] MEDS ORDERED: MAGNESIUM HYDROXIDE 30ML CUP PO ONE (21:00)
[2018-05-08] MEDS ORDERED: INSULIN ASPART [NOVOLOG] 3 ML PEN SC SCH (21:00)
[2018-05-08] MEDS ORDERED: NIFEdipine 10 MG CAP PO ONE (21:00)
[2018-05-08] MEDS: metroNIDAZOLE 500 MG TAB PO SCH (21:08)
[2018-05-08] MEDS ORDERED: GLUCAGON 1 MG INJ IM PRN (21:30)
[2018-05-08] MEDS ORDERED: GLUCOSE GEL 15 GRAM TUBE BUCCAL PRN (21:30)
[2018-05-08] MEDS ORDERED: DEXTROSE 50% 50 ML SYRINGE IV PRN ×2 (21:30)
[2018-05-08] MEDS ORDERED: GLUCOSE GEL 15 GRAM TUBE PO PRN ×2 (21:30)
[2018-05-08] MEDS: ACCU-CHEK XX SCH (22:24)
[2018-05-08] MEDS ORDERED: PROGESTERONE 100 MG CAP PO ONE (23:30)
[2018-05-08] MEDS ORDERED: DIPHTH/TET/ACEL PERTUSS (ADULT) 0.5 ML VIAL IM* ONE (23:30)
[2018-05-09] MEDS: NIFEdipine 10 MG CAP PO SCH ×4 (00:12→22:18)
[2018-05-09] MEDS: LACTATED RINGER'S 1,000 ML IV SCH (02:08)
[2018-05-09] MEDS: ACCU-CHEK XX SCH ×4 (07:30→20:08)
[2018-05-09] MEDS: INSULIN ASPART [NOVOLOG] 3 ML PEN SC SCH ×4 (07:35→21:00)
[2018-05-09] MEDS: PRENATAL VITAMIN PO SCH (08:36)
[2018-05-09] MEDS: metroNIDAZOLE 500 MG TAB PO SCH ×2 (08:37→21:22)
--- NOTE | 2018-05-09 16:03 | CONS ---
Consultation Date/Type/Reason Admit Date/Time May 05, 2018 at 15:30 Date of Consultation: May 09, 2018 Type of Consult Neonatology Reason for Consultation For labor less than 32 weeks with gestational diabetes. Requesting Provider: PARUL TONG Date/Time of Note DATE: 05/09/18 TIME: 15:59 Hx of Present Illness Ms. Crenshaw is 37-year-old 5 para 2 AB 2 at present 30-4/7-week on 07/09. She was admitted on 05/09 because of labor, also has gestational d iabetes. Gestational diabetes is diet controlled. She has received tocolytics terbutaline and was started on Procardia and progesterone, received Flagyl for [place] I spoke extensively to Ms. Crenshaw with the help of the telephone direct marketing specialist her was present of part of the interview and not had questions at the end of the interview I discussed prematurity and risk for neurodevelopmental problems as compared to full-term babies, specifically Risk for intracranial hemorrhage, respiratory distress requiring a variety of support, no invasive procedures such as umbilical peripheral arterial and central venous catheterization as well as spinal tap related to infection, need for intravenous gavage feeding and risk for necrotizing enterocolitis, risk for intracranial hemorrhage, risk for glucose and electrolyte disturbances, hyperbilirubinemia retinopathy of prematurity. No questions remain to answer at the end of the interview and parents were satisfied visited consult. Thank you for allowing me to assist in the care of this family Time spent 30 minutes of which more than 50% was spent on counseling and coordination of care. Past Medical History Home Meds Reported Medications Pnv95/Ferrous Fumarate/FA ( Vitamins Tablet) 1 Each Tablet, 1 EACH PO, TAB 05/05/18 Medications Current Medications Prenat Multivit/ [place]/Iron/Folic Ac () 1 tab DAILY PO Last administered on 05/09/18at 08:36; Admin Dose 1 TAB; Start 05/06/18 at 09:00 Terbutaline Sulfate (Brethine) 0.25 mg Q30MIN PRN SC contractions Last administered on 05/08/18at 16:59; Admin Dose 0.25 MG; Start 05/08/18 at 11:30 Metronidazole (Flagyl) 500 mg BID PO Last administered on 05/09/18at 08:37; Admin Dose 500 MG; Start 05/08/18 at 21:00 Nifedipine (Procardia) 10 mg Q8 PO Last administered on 05/09/18at 14:15; Admin Dose 10 MG; Start 05/08/18 at 17:45 Diagnostic Test (Pha) (Accu-Chek) 1 ea FBSPP XX Last administered on 05/09/18at 14:46; Admin Dose 1 EA; Start 05/08/18 at 21:00 Miscellaneous Information 1 ea NOTE XX ; Start 05/08/18 at 21:30 Glucose (Glutose) 15 gm Q15M PRN PO DECREASED GLUCOSE; Start 05/08/18 at 21:30 Glucose (Glutose) 22.5 gm Q15M PRN PO DECREASED GLUCOSE; Start 05/08/18 at 21:30 Dextrose (D50w Syringe) 25 ml Q15M PRN IV DECREASED GLUCOSE; Start 05/08/18 at 21:30 Dextrose (D50w Syringe) 50 ml Q15M PRN IV DECREASED GLUCOSE; Start 05/08/18 at 21:30 Glucagon (Glucagen) 1 mg Q15M PRN IM DECREASED GLUCOSE; Start 05/08/18 at 21:30 Glucose (Glutose) 15 gm Q15M PRN BUCCAL DECREASED GLUCOSE; Start 05/08/18 at 21:30 Insulin Aspart (Novolog Insulin Pen) AC MEALS AND BEDTIME SC ; Start 05/09/18 at 07:35 Progesterone (Prometrium) 200 mg HS VAG ; Start 05/09/18 at 21:00 Allergies: Coded Allergies: No Known Drug Allergies (Verified Allergy, Mild, 05/05/18) Past Surgical History Past Surgical Hx: no surgical history Social History Smoking Status: Never smoker Exam/Review of Systems Exam Vitals Vital Signs Date Temp Pulse Resp B/P (MAP) Pulse Ox O2 O2 Flow FiO2 Time Delivery Rate 05/05/18 98.5 85 20 108/62 Room Air 13:34 (77) Intake and Output 05/08/18 05/08/18 05/09/18 1515:00 23:00 07:00 IntakeIntake Total 1050 ml 665 ml 1075 ml OutputOutput Total 600 ml 1100 ml BalanceBalance 450 ml -435 ml 1075 ml Results Results 24hrs Laboratory Tests Test 05/08/18 20:59 05/08/18 22:23 05/09/18 07:56 05/09/18 10:05 Hemoglobin A1c 5.5 Bedside Glucose 169 89 92 Test 05/09/18 12:12 Bedside Glucose 113 Medications Medication Current Medications Prenat Multivit/ [place]/Iron/Folic Ac () 1 tab DAILY PO Last adminis tered on 05/09/18at 08:36; Admin Dose 1 TAB; Start 05/06/18 at 09:00 Terbutaline Sulfate (Brethine) 0.25 mg Q30MIN PRN SC contractions Last administered on 05/08/18at 16:59; Admin Dose 0.25 MG; Start 05/08/18 at 11:30 Metronidazole (Flagyl) 500 mg BID PO Last administered on 05/09/18 08:37; Admin Dose 500 MG; Start 05/08/18 at 21:00 Nifedipine (Procardia) 10 mg Q8 PO Last administered on 05/09/18at 14:15; Admin Dose 10 MG; Start 05/08/18 at 17:45 Diagnostic Test (Pha) (Accu-Chek) 1 ea FBSPP XX Last administered on 05/09/18at 14:46; Admin Dose 1 EA; Start 05/08/18 at 21:00 Miscellaneous Information 1 ea NOTE XX ; Start 05/08/18 at 21:30 Glucose (Glutose) 15 gm Q15M PRN PO DECREASED GLUCOSE; Start 05/08/18 at 21:30 Glucose (Glutose) 22.5 gm Q15M PRN PO DECREASED GLUCOSE; Start 05/08/18 at 21:30 Dextrose (D50w Syringe) 25 ml Q15M PRN IV DECREASED GLUCOSE; Start 05/08/18 at 21:30 Dextrose (D50w Syringe) 50 ml Q15M PRN IV DECREASED GLUCOSE; Start 05/08/18 at 21:30 Glucagon (Glucagen) 1 mg Q15M PRN IM DECREASED GLUCOSE; Start 05/08/18 at 21:30 Glucose (Glutose) 15 gm Q15M PRN BUCCAL DECREASED GLUCOSE; Start 05/08/18 at 21:30 Insulin Aspart (Novolog Insulin Pen) AC MEALS AND BEDTIME SC ; Start 05/09/18 at 07:35 Progesterone (Prometrium) 200 mg HS VAG ; Start 05/09/18 at 21:00 CIERA JACKSON May 09, 2018 16:03
[2018-05-09] MEDS ORDERED: PROGESTERONE 100 MG CAP VAG SCH (21:00)
[2018-05-09] MEDS ORDERED: PROGESTERONE 100 MG CAP PO SCH (21:00)
--- NOTE | 2018-05-09 21:45 | DS ---
Date/Time of Note Date/Time of Note DATE: 05/09/18 TIME: 21:32 Obstetrical Discharge Record Final Diagnosis Final Diagnosis: not delivered Other Final Diagnosis Date of admission 05/05/2018 Date of discharge: 05/09/2018 37 years old with single intrauterine at 30 weeks and 4 days with QASIM of 07/13/2018 with labor 1) PNC: -FHR: Reassuring. No sign of metabolic acidosis- Category I -Contractions: Occasional -Continue vitamin, ferrous sulfate and calcium citrate -Tdap vaccine given 2) labor and history of delivery at 34 weeks: -Negative fibronectin, cervical length 3.1 -She has received magnesium sulfate and betamethasone x2. She is steroid benefited since 05/07/18. Again she had regular uterine contraction, currently is on Procardia 10 mg every 8 hours. Continue vaginal progesterone 200 mg every nigh. She is comfortable and has occasional uterine contractions. Patient discharged home in stable condition with follow-up in clinic 3) GDM A1: She recently had a 3-hour GTT which was abnormal. Effect of gestational diabetes on and vice versa discussed in detail with patient. She expressed understanding. All of her questions answered. Continue checking FBS and 2 hours postprandial at home. She was seen by technical product manager. 4) urine culture with more than 100,000 [place]: Metronidazole 500 mg every 12 hours for 7 days. Repeat urine culture in 1 week after finishing the medication Condition on Discharge Physical Assessment Last Vitals: Vital Signs Date Temp Pulse Resp B/P (MAP) Pulse Ox O2 O2 Flow FiO2 Time Delivery Rate 05/05/18 98.5 85 20 108/62 Room Air 13:34 (77) Voiding: Yes Bowel Movement: Yes Calf Tenderness: No Patient Condition: Stable PARUL TONG May 09, 2018 21:44
--- NOTE | 2018-05-10 03:47 | CONS ---
DATE OF ADMISSION: 05/05/2018 DATE OF CONSULTATION: 05/09/2018 I was informed that the patient, who is currently 34 weeks, has been admitted 4 days ago for labor. Received magnesium sulfate and betamethasone. Cervical length was 3.6 cm. My recommendation is that if the cervical length is unchanged, she can be discharged home with preter m labor instructions. Dictated By: GREG MATA MD ST/NTS Conf#: [id number] DID#: [id number] CC: PARUL TONG MD;*EndCC*
== END 2018-05-09 23:25 | disposition home or self-care (01) | DRG 833 ==
LOC: OBT 13:08 → L-D 13:08 → OBT 15:30 → PP1 22:20
PROVIDERS: ADMIT Obstetrics & Gynecology; ATTEND Obstetrics & Gynecology
DX: O47.03 False labor before 37 completed weeks of gestation, third trimester (principal); O24.419 Gestational diabetes mellitus in pregnancy, unspecified control; Z3A.30 30 weeks gestation of pregnancy
CPT/HCPCS: 76817; 76818; 81001; 82731; 82962; 83036; 83735; 87081; 87086; 96360; 96361; 96372; G0463; J0690; J0702; J1815; J3105; J3475; J7120

== ENCOUNTER 2018-06-05 11:15 | Inpatient (IN) | payer MEDICAID ==
[~2018-06-05] VITALS: Ht 144.8 cm; Wt 72.3 kg
[~2018-06-05 11:15] MED LIST changes: -NITR-58 PO; -PREN-93 PO; +PREN1TAB13 PO
[2018-06-05 11:31] VITALS: BP 117/73; PULSE 70; RESP 17; Ht 144.8 cm; Wt 72.3 kg
[2018-06-05] MEDS ORDERED: NIFE10CA PO (11:32)
--- NOTE | 2018-06-05 13:43 | HP ---
Date/Time of Note Date/Time of Note DATE: 06/05/18 TIME: 13:40 OB - History Hx of Present Free Text/Dictation 34+wks sent from perinatology unit for Prolonged Monitoring SUKHDEV is 8.2 Has some variables in triage,She will be observed for 24 hours : 3 Para: 1 Care: Good Care Ultrasounds: Normal mid trimester US Obstetrical Complications: None Medical Complications: None Past Family/Social History * Past Medical, Surgical, Family and Obstetric Histories reviewed from chart. OB Admission Exam Vital Signs Vital Signs Vital Signs Date Temp Pulse Resp B/P (MAP) Pulse Ox O2 O2 Flow FiO2 Time Delivery Rate 06/05/18 97.9 70 17 117/73 11:31 (88) Physical Exam Abdomen: WNL Extremities: Normal Membranes: Intact Heart Rate: 140's Accelerations: Accelerations Present Decelerations: Variable Decelerations Varibility: Moderate Contractions on Admission: None OB Assessment/Plan Reason for admission: observation Other Assessment: PMH denies PSH Denies Plan: Expectant Management VICTORIA CHENG M.D. Jun 05, 2018 13:43
--- NOTE | 2018-06-05 14:19 | TRIAGE ---
OB Triage Datetime Report Generated by CPN: 06/05/2018 14:18 Datetime: 06/05/2018 14:17 Vaginal Bleeding: None Maternal Assessment Level of Consciousness: Fully Conscious DTR's/Clonus: DTRs 2+; No Clonus Headache: Denies Blurred Vision: No Respiratory Effort: Unlabored; Regular Rhythm; Equal Expansion Breath Sounds, Left: Clear and Equal Breath Sounds, Right: Clear and Equal Nausea/Vomiting: Denies RUQ Epigastric Pain: Denies Facial Edema: None Fall Risk Assessment History of Falling: (0) No Secondary Diagnosis: (0) No Ambulatory Aid: (0) Bedrest/Nurse Assist IV Therapy: (0) No Gait: (0) Normal/Bedrest/Immobile Mental Status: (0) Oriented to Own Ability Fall Score: 0 Fall Risk Score Definition: No Risk: No action required Datetime: 06/05/2018 14:15 Time of Arrival: 06/05/2018 14:10 EGA: 34.5 Arrived By: Wheelchair Arrived From: Other Unit in Hospital Datetime: 06/05/2018 13:54 Labor Evaluation Frequency: X1 Monitor Mode: External Duration (sec)2399: 70 Quality: Mild Pattern: Normal: <= 5 Contractions in 10 Minutes Resting Tone [place]: Relaxed Heart Rate FHR Baseline Rate: 135 Monitor Mode: External US Variability: Moderate 6-25 bpm Accelerations: 15X15 Decelerations: None Category: Category I Pain Presence: None/Denies Pain Type: N/A Datetime: 06/05/2018 13:00 Stage of : OB Triage Labor Evaluation Frequency: irregular Monitor Mode: External Quality: Mild Pattern: Normal: <= 5 Contractions in 10 Minutes Resting Tone [place]: Relaxed Heart Rate FHR Baseline Rate: 135 Monitor Mode: External US Variability: Moderate 6-25 bpm Accelerations: 15X15 Decelerations: None Pain Presence: None/Denies Pain Type: N/A Datetime: 06/05/2018 12:00 Labor Evaluation Frequency: 2-6 Duration (sec)2399: 30-120 Quality: Mild Pattern: Normal: <= 5 Contractions in 10 Minutes Resting Tone [place]: Relaxed Heart Rate FHR Baseline Rate: 135 Monitor Mode: External US Variability: Moderate 6-25 bpm Accelerations: 15X15 Decelerations: None Category: Category I Pain Presence: None/Denies Pain Type: N/A Datetime: 06/05/2018 11:25 Assessment Type: Triage Maternal Assessment Level of Consciousness: Fully Conscious DTR's/Clonus: DTRs 2+; No Clonus Headache: Denies Blurred Vision: No Respiratory Effort: Unlabored; Regular Rhythm; Equal Expansion Breath Sounds, Left: Clear and Equal Breath Sounds, Right: Clear and Equal Nausea/Vomiting: Denies RUQ Epigastric Pain: Denies Lower Extremities Edema: None Degree: None Upper Extremities Edema: None Facial Edema: None Fall Risk Assessment History of Falling: (0) No Secondary Diagnosis: (0) No Ambulatory Aid: (0) Bedrest/Nurse Assist IV Therapy: (0) No Gait: (0) Normal/Bedrest/Immobile Mental Status: (0) Oriented to Own Ability Fall Score: 0 Fall Risk Score Definition: No Risk: No action required Datetime: 06/05/2018 09:16 Arrived By: Ambulatory Arrived From: Other Hospital Chief Complaint: extended efm due to non reactive nst @ nst clinic Movement: Present Contractions: Denies/Absent Rupture of Membranes: Denies Vaginal Bleeding: None Vaginal Discharge: Denies Recent Sexual Intercouse: Denies Abdominal Trauma: Not Applicable Patient Complaints: None Time Provider Notified: 06/05/2018 11:39 Provider Notified: Initial Plan: efm Datetime: 05/09/2018 23:00 Labor Evaluation Frequency: none Monitor Mode: External Resting Tone [place]: Relaxed Datetime: 05/09/2018 22:00 Labor Evaluation Frequency: none Monitor Mode: External Resting Tone [place]: Relaxed Datetime: 05/09/2018 21:25 Labor Evaluation Frequency: none Monitor Mode: External Resting Tone [place]: Relaxed Heart Rate FHR Baseline Rate: 145 Monitor Mode: External US FHR Baseline Changes: No Baseline Change Variability: Moderate 6-25 bpm Accelerations: 10X10 Decelerations: None Category: Category I Comments: FHR reactive and reassuring. Appropriate for GA. +FM noted. Datetime: 05/09/2018 21:00 Labor Evaluation Frequency: x1 Monitor Mode: External Duration (sec)2399: 50 Quality: Mild Resting Tone [place]: Relaxed Contraction Comments: not felt by pt. Heart Rate FHR Baseline Rate: 150 Monitor Mode: External US FHR Baseline Changes: No Baseline Change Variability: Moderate 6-25 bpm Accelerations: 10X10 Decelerations: None Category: Category I Datetime: 05/09/2018 20:17 Stage of : Antepartum Assessment Type: Ongoing Assessment Maternal Assessment Level of Consciousness: Fully Conscious DTR's/Clonus: DTRs 2+; No Clonus Headache: Denies Blurred Vision: No Respiratory Effort: Unlabored; Regular Rhythm; Equal Expansion Breath Sounds, Left: Clear and Equal Breath Sounds, Right: Clear and Equal Nausea/Vomiting: Denies RUQ Epigastric Pain: Denies Lower Extremities Edema: None Degree: None Upper Extremities Edema: None Degree: None Facial Edema: None Temperature Route: Oral Fall Risk Assessment History of Falling: (0) No Secondary Diagnosis: (0) No Ambulatory Aid: (0) Bedrest/Nurse Assist IV Therapy: (0) No Gait: (0) Normal/Bedrest/Immobile Mental Status: (0) Oriented to Own Ability Fall Score: 0 Fall Risk Score Definition: No Risk: No action required Pain Assessment Pain Scale: 0 Pain Presence: None/Denies Pain Goal: 0 Datetime: 05/09/2018 20:14 Comments: EFM on. +FM noted. Datetime: 05/09/2018 20:00 Labor Evaluation Frequency: x1 Monitor Mode: External Duration (sec)2399: 90 Quality: Mild Resting Tone [place]: Relaxed Contraction Comments: Not felt by pt. Datetime: 05/09/2018 18:03 Stage of : Antepartum Maternal Assessment Level of Consciousness: Fully Conscious Headache: Denies Nausea/Vomiting: Denies RUQ Epigastric Pain: Denies Labor Evaluation Frequency: 0/hr Monitor Mode: External Pain Assessment Pain Scale: 0 Pain Presence: None/Denies Vaginal Bleeding: None Datetime: 05/09/2018 17:07 Stage of : Antepartum Maternal Assessment Level of Consciousness: Fully Conscious Headache: Denies Nausea/Vomiting: Denies RUQ Epigastric Pain: Denies Labor Evaluation Frequency: 0/hr Monitor Mode: External Pain Assessment Pain Scale: 0 Pain Presence: None/Denies Vaginal Bleeding: None Datetime: 05/09/2018 16:01 Stage of : Antepartum Labor Evaluation Frequency: 0/hr Monitor Mode: External Datetime: 05/09/2018 15:35 Maternal Assessment Level of Consciousness: Fully Conscious Headache: Denies Blurred Vision: No Respiratory Effort: Unlabored Nausea/Vomiting: Denies RUQ Epigastric Pain: Denies Resting Tone [place]: Relaxed Pain Presence: None/Denies Datetime: 05/09/2018 15:13 Stage of : Antepartum Labor Evaluation Frequency: 0/hr Monitor Mode: External Datetime: 05/09/2018 14:00 Stage of : Antepartum Labor Evaluation Frequency: irregular Monitor Mode: External Duration (sec)2399: 40-60 Quality: Mild Datetime: 05/09/2018 13:34 Stage of : Antepartum Contraction Comments: dr. solis rvwd. strip and aware of uc. cont. w/ poc no d/c home today but possible tomorrow. prescription for procardia and prometrium given to pt. Pain Presence: None/Denies Datetime: 05/09/2018 13:06 Stage of : Antepartum Labor Evaluation Frequency: 6-7 Monitor Mode: External Duration (sec)2399: 40-60 Quality: Mild Monitor Mode: External US Variability: Moderate 6-25 bpm Accelerations: 10X10 Decelerations: Variable Comments: few variables less than 60 secs. return to baseline. toco adjusted pt. denies uc's Datetime: 05/09/2018 13:02 Resting Tone [place]: Relaxed Contraction Comments: uc's noted w/ toco but rn at bedside and pt. denies at this time Pain Presence: None/Denies Datetime: 05/09/2018 12:01 Stage of : Antepartum Maternal Assessment Level of Consciousness: Fully Conscious Headache: Denies Nausea/Vomiting: Denies RUQ Epigastric Pain: Denies Labor Evaluation Frequency: 0/hr Monitor Mode: External Heart Rate FHR Baseline Rate: 150 Monitor Mode: External US Variability: Moderate 6-25 bpm Accelerations: None Decelerations: None Pain Assessment Pain Scale: 0 Pain Presence: None/Denies Vaginal Bleeding: None Datetime: 05/09/2018 11:28 Pain Presence: None/Denies Datetime: 05/09/2018 11:05 Labor Evaluation Frequency: irregular Monitor Mode: External Quality: Mild Heart Rate FHR Baseline Rate: 145 Variability: Moderate 6-25 bpm Accelerations: None Decelerations: None Datetime: 05/09/2018 10:47 Monitor Mode: External Resting Tone [place]: Relaxed Pain Presence: None/Denies Datetime: 05/09/2018 10:05 Labor Evaluation Frequency: 5-6 Monitor Mode: External Duration (sec)2399: 50 Quality: Mild Resting Tone [place]: Relaxed Pain Assessment Pain Scale: 1 Pain Presence: Intermittent Pain Type: Contraction Datetime: 05/09/2018 08:59 Pain Presence: None/Denies Datetime: 05/09/2018 08:03 Pain Presence: None/Denies Datetime: 05/09/2018 07:43 Heart Rate FHR Baseline Rate: 145 Monitor Mode: External US Variability: Minimal - Undetectable to <=5 bpm Decelerations: Variable Comments: x2 variable w/ return to baseline Datetime: 05/09/2018 07:08 Stage of : Antepartum Assessment Type: Ongoing Assessment Maternal Assessment Level of Consciousness: Fully Conscious Maternal Assessment Level of Consciousness: Fully Conscious DTR's/Clonus: DTRs 2+; No Clonus Headache: Denies Headache: Denies Blurred Vision: No Blurred Vision: No Respiratory Effort: Unlabored; Regular Rhythm; Equal Expansion Respiratory Effort: Unlabored Breath Sounds, Left: Clear and Equal Breath Sounds, Right: Clear and Equal Nausea/Vomiting: Denies Nausea/Vomiting: Denies RUQ Epigastric Pain: Denies RUQ Epigastric Pain: Denies Lower Extremities Edema: None Degree: None Upper Extremities Edema: None Degree: None Facial Edema: None Fall Risk Assessment History of Falling: (0) No Secondary Diagnosis: (0) No Ambulatory Aid: (0) Bedrest/Nurse Assist Gait: (0) Normal/Bedrest/Immobile Mental Status: (0) Oriented to Own Ability Resting Tone [place]: Relaxed Pain Presence: None/Denies Datetime: 05/09/2018 06:00 Labor Evaluation Frequency: 0 Monitor Mode: External Resting Tone [place]: Relaxed Heart Rate FHR Baseline Rate: 155 Monitor Mode: External US Variability: Moderate 6-25 bpm Accelerations: 10X10 Decelerations: None Category: Category I Pain Presence: None/Denies Datetime: 05/09/2018 05:00 Labor Evaluation Frequency: 0 Monitor Mode: External Duration (sec)2399: DENIES Resting Tone [place]: Relaxed Heart Rate FHR Baseline Rate: 145 Monitor Mode: External US Variability: Moderate 6-25 bpm Accelerations: 10X10 Decelerations: None Category: Category I Pain Presence: None/Denies Datetime: 05/09/2018 04:00 Labor Evaluation Frequency: X2 Monitor Mode: External Duration (sec)2399: 40-70 Quality: Mild Resting Tone [place]: Relaxed Heart Rate FHR Baseline Rate: 145 Monitor Mode: External US Variability: Moderate 6-25 bpm Accelerations: 10X10 Decelerations: None Category: Category I Pain Presence: None/Denies Datetime: 05/09/2018 03:00 Labor Evaluation Frequency: OCCASIONAL Monitor Mode: External Duration (sec)2399: 60-70 Quality: Mild Resting Tone [place]: Relaxed Heart Rate FHR Baseline Rate: 155 Monitor Mode: External US Variability: Moderate 6-25 bpm Accelerations: 10X10 Decelerations: None Category: Category I Pain Presence: None/Denies Datetime: 05/09/2018 02:00 Labor Evaluation Frequency: IRREGULAR Monitor Mode: External Duration (sec)2399: 40-60 Quality: Mild Resting Tone [place]: Relaxed Heart Rate FHR Baseline Rate: 155 Monitor Mode: External US Variability: Moderate 6-25 bpm Accelerations: 15X15 Decelerations: None Category: Category I Pain Presence: None/Denies Datetime: 05/09/2018 01:00 Labor Evaluation Frequency: IRREGULAR Monitor Mode: External Duration (sec)2399: 50-70 Quality: Mild Resting Tone [place]: Relaxed Heart Rate FHR Baseline Rate: 155 Monitor Mode: External US Variability: Moderate 6-25 bpm Accelerations: 15X15 Decelerations: None Category: Category I Pain Presence: None/Denies Datetime: 05/09/2018 00:00 Labor Evaluation Frequency: IRREGULAR Monitor Mode: External Duration (sec)2399: 40-80 Quality: Mild Resting Tone [place]: Relaxed Heart Rate FHR Baseline Rate: 155 Monitor Mode: External US Variability: Moderate 6-25 bpm Accelerations: 15X15 Decelerations: None Category: Category I Pain Presence: None/Denies Datetime: 05/08/2018 23:00 Labor Evaluation Frequency: X7 Monitor Mode: External Duration (sec)2399: 40-60 Quality: Mild Resting Tone [place]: Relaxed Heart Rate FHR Baseline Rate: 150 Monitor Mode: External US Variability: Moderate 6-25 bpm Accelerations: 10X10 Decelerations: None Category: Category I Pain Presence: None/Denies Datetime: 05/08/2018 22:00 Labor Evaluation Frequency: occasional Monitor Mode: External Duration (sec)2399: 40-60 Quality: Mild Resting Tone [place]: Relaxed Contraction Comments: pt stated uc's is less now after the procardia was given,will keep monitoring . Heart Rate FHR Baseline Rate: 155 Monitor Mode: External US Variability: Moderate 6-25 bpm Accelerations: 10X10 Decelerations: None Category: Category I Datetime: 05/08/2018 21:00 Labor Evaluation Frequency: 3-6 Monitor Mode: External Duration (sec)2399: 40-70 Quality: Mild Resting Tone [place]: Relaxed Heart Rate FHR Baseline Rate: 155 Monitor Mode: External US Variability: Moderate 6-25 bpm Accelerations: 10X10 Decelerations: None Category: Category I Datetime: 05/08/2018 20:00 Labor Evaluation Frequency: 2-10 Monitor Mode: External Duration (sec)2399: 40-60 Quality: Mild Resting Tone [place]: Relaxed Contraction Comments: pt stated she feels uc's,her pain 4/10 on a scale. Heart Rate FHR Baseline Rate: 155 Monitor Mode: External US Variability: Moderate 6-25 bpm Accelerations: 10X10 Decelerations: None Category: Category I Pain Relief Measures: Comfort Measures Datetime: 05/08/2018 19:48 Stage of : Antepartum Assessment Type: Ongoing Assessment Maternal Assessment Level of Consciousness: Fully Conscious DTR's/Clonus: DTRs 2+; No Clonus Headache: Denies Blurred Vision: No Respiratory Effort: Unlabored; Regular Rhythm; Equal Expansion Breath Sounds, Left: Clear and Equal Breath Sounds, Right: Clear and Equal Nausea/Vomiting: Denies RUQ Epigastric Pain: Denies Lower Extremities Edema: None Degree: None Upper Extremities Edema: None Degree: None Facial Edema: None Temperature Route: Oral Fall Risk Assessment History of Falling: (0) No Secondary Diagnosis: (0) No Ambulatory Aid: (0) Bedrest/Nurse Assist IV Therapy: (0) No Gait: (0) Normal/Bedrest/Immobile Mental Status: (0) Oriented to Own Ability Fall Score: 0 Fall Risk Score Definition: No Risk: No action required Monitor Mode: External Pain Assessment Pain Scale: 4 (Annotations: WHEN UC'S PRESENT.) Pain Presence: Intermittent Pain Type: Contraction Pain Location: Abdomen; Back Pain Goal: 3 Pain Relief Measures: Comfort Measures Datetime: 05/08/2018 18:07 Labor Evaluation Frequency: occasional Monitor Mode: External Duration (sec)2399: irreguar Quality: Mild Resting Tone [place]: Relaxed Heart Rate FHR Baseline Rate: 150 Monitor Mode: External US FHR Baseline Changes: No Baseline Change Variability: Moderate 6-25 bpm Accelerations: 10X10 Decelerations: Variable Category: Category I Datetime: 05/08/2018 16:58 Labor Evaluation Frequency: q2-5 Monitor Mode: External Duration (sec)2399: 50-60 Quality: Mild Resting Tone [place]: Relaxed Pain Assessment Pain Scale: 5 Pain Type: Contraction Pain Goal: 0 Datetime: 05/08/2018 15:44 Labor Evaluation Frequency: 0 Monitor Mode: External Resting Tone [place]: Relaxed Contraction Comments: toco moved to lower abdomen as pt states she feels cramping Heart Rate FHR Baseline Rate: 150 Monitor Mode: External US FHR Baseline Changes: No Baseline Change Variability: Moderate 6-25 bpm Accelerations: 10X10 Decelerations: None Category: Category I Datetime: 05/08/2018 14:06 Labor Evaluation Frequency: 0 Monitor Mode: External Resting Tone [place]: Relaxed Heart Rate FHR Baseline Rate: 150 Monitor Mode: External US FHR Baseline Changes: No Baseline Change Variability: Moderate 6-25 bpm Accelerations: 15X15 Decelerations: None Category: Category I Datetime: 05/08/2018 13:44 Pain Presence: None/Denies Datetime: 05/08/2018 11:55 Vaginal Exam Dilatation (cms): 0.0 Effacement (%): 40 Station: -3 Vaginal Bleeding: None Cervix, Consistency: Soft Cervix, Position: Midposition Datetime: 05/08/2018 11:28 Labor Evaluation Frequency: q2-5 Monitor Mode: External Duration (sec)2399: 40-60 Quality: Mild Pattern: Normal: <= 5 Contractions in 10 Minutes Resting Tone [place]: Relaxed Heart Rate FHR Baseline Rate: 150 Monitor Mode: External US FHR Baseline Changes: No Baseline Change Variability: Moderate 6-25 bpm Accelerations: 10X10 Decelerations: None Category: Category I Datetime: 05/08/2018 10:26 Labor Evaluation Frequency: q2-5 Monitor Mode: External Duration (sec)2399: 40-60 Quality: Mild Resting Tone [place]: Relaxed Heart Rate FHR Baseline Rate: 150 Monitor Mode: External US FHR Baseline Changes: No Baseline Change Variability: Moderate 6-25 bpm Accelerations: 10X10 Decelerations: Variable Category: Category I Datetime: 05/08/2018 09:28 Labor Evaluation Frequency: q2-4 Monitor Mode: External Duration (sec)2399: irregular Quality: Mild Pattern: Normal: <= 5 Contractions in 10 Minutes Resting Tone [place]: Relaxed Datetime: 05/08/2018 08:39 Assessment Type: Ongoing Assessment Maternal Assessment Level of Consciousness: Fully Conscious DTR's/Clonus: DTRs 2+; No Clonus Headache: Denies Blurred Vision: No Respiratory Effort: Unlabored; Regular Rhythm; Equal Expansion Breath Sounds, Left: Clear and Equal Breath Sounds, Right: Clear and Equal Nausea/Vomiting: Denies RUQ Epigastric Pain: Denies Facial Edema: None Fall Risk Assessment History of Falling: (0) No Secondary Diagnosis: (0) No Ambulatory Aid: (0) Bedrest/Nurse Assist IV Therapy: (20) Yes Gait: (0) Normal/Bedrest/Immobile Mental Status: (0) Oriented to Own Ability Fall Score: 20 Fall Risk Score Definition: No Risk: No action required Datetime: 05/08/2018 08:28 Labor Evaluation Frequency: 0 Monitor Mode: External Resting Tone [place]: Relaxed Pain Presence: None/Denies Datetime: 05/08/2018 06:57 Labor Evaluation Frequency: NONE Monitor Mode: External Resting Tone [place]: Relaxed Pain Presence: None/Denies Pain Type: N/A Datetime: 05/08/2018 06:20 Stage of : Antepartum Datetime: 05/08/2018 06:00 Labor Evaluation Frequency: NONE Monitor Mode: External Resting Tone [place]: Relaxed Pain Presence: None/Denies Pain Type: N/A Datetime: 05/08/2018 05:09 Stage of : OB Triage Temperature Route: Oral Pain Presence: None/Denies Pain Type: N/A Pain Assessment Comments: PT DENIES ANY NEEDS AT THIS TIME Datetime: 05/08/2018 05:04 Labor Evaluation Frequency: NONE Monitor Mode: External Resting Tone [place]: Relaxed Pain Presence: Intermittent Pain Type: N/A Datetime: 05/08/2018 04:00 Labor Evaluation Frequency: NONE Monitor Mode: External Resting Tone [place]: Relaxed Pain Presence: None/Denies Pain Type: N/A Datetime: 05/08/2018 03:00 Labor Evaluation Frequency: NONE Monitor Mode: External Resting Tone [place]: Relaxed Contraction Comments: SOME UTERINE IRRITABILITY NOTED Pain Presence: None/Denies Pain Type: N/A Datetime: 05/08/2018 02:00 Labor Evaluation Frequency: NONE Monitor Mode: External Resting Tone [place]: Relaxed Heart Rate FHR Baseline Rate: 140 Monitor Mode: External US Variability: Moderate 6-25 bpm Accelerations: None Decelerations: None Comments: WITH PERIODS OF MINIMAL VARIABILITY Pain Presence: None/Denies Pain Type: N/A Datetime: 05/08/2018 01:54 Monitor Mode: External US Comments: REMOVED. FM ORDER NST Q SHIFT Datetime: 05/08/2018 01:00 Labor Evaluation Frequency: NONE Monitor Mode: External Resting Tone [place]: Relaxed Heart Rate FHR Baseline Rate: 140 Monitor Mode: External US Variability: Moderate 6-25 bpm Accelerations: None Decelerations: Variable Pain Presence: None/Denies Pain Type: N/A Datetime: 05/08/2018 00:00 Stage of : Antepartum Heart Rate FHR Baseline Rate: 140 Monitor Mode: External US Variability: Moderate 6-25 bpm Accelerations: 10X10 Decelerations: None Pain Presence: None/Denies Pain Type: N/A Datetime: 05/07/2018 23:22 Stage of : Antepartum Temperature Route: Oral Pain Presence: None/Denies Pain Type: N/A Datetime: 05/07/2018 23:00 Labor Evaluation Frequency: NONE Monitor Mode: External Resting Tone [place]: Relaxed Heart Rate FHR Baseline Rate: 140 Monitor Mode: External US Variability: Moderate 6-25 bpm Accelerations: None Decelerations: None Pain Presence: None/Denies Pain Type: N/A Datetime: 05/07/2018 22:00 Stage of : Antepartum Heart Rate FHR Baseline Rate: 145 Monitor Mode: External US Variability: Minimal - Undetectable to <=5 bpm Accelerations: None Decelerations: None Pain Presence: None/Denies Pain Type: N/A Datetime: 05/07/2018 21:00 Heart Rate FHR Baseline Rate: 140 Monitor Mode: External US Comments: LOC DUE TO PT SITTING UP TALKING WITH HER VISITORS Datetime: 05/07/2018 20:00 Stage of : Antepartum Labor Evaluation Frequency: NONE Monitor Mode: External Resting Tone [place]: Relaxed Heart Rate FHR Baseline Rate: 140 Monitor Mode: External US Variability: Moderate 6-25 bpm Accelerations: 15X15 Decelerations: Variable Pain Presence: None/Denies Pain Type: N/A Datetime: 05/07/2018 19:20 Stage of : Antepartum Assessment Type: Ongoing Assessment Maternal Assessment Level of Consciousness: Fully Conscious DTR's/Clonus: DTRs 2+; No Clonus Headache: Denies Blurred Vision: No Respiratory Effort: Unlabored; Regular Rhythm; Equal Expansion Breath Sounds, Left: Clear and Equal Breath Sounds, Right: Clear and Equal Nausea/Vomiting: Denies RUQ Epigastric Pain: Denies Lower Extremities Edema: None Degree: None Upper Extremities Edema: None Degree: None Facial Edema: None Temperature Route: Oral Fall Risk Assessment History of Falling: (0) No Secondary Diagnosis: (0) No Ambulatory Aid: (0) Bedrest/Nurse Assist IV Therapy: (0) No Gait: (0) Normal/Bedrest/Immobile Mental Status: (0) Oriented to Own Ability Fall Score: 0 Fall Risk Score Definition: No Risk: No action required Monitor Mode: External Contraction Comments: PT STATES + FM Monitor Mode: External US Comments: PT STATES + FM Pain Presence: None/Denies Pain Type: N/A Membrane Status: Intact Vaginal Bleeding: None Datetime: 05/07/2018 18:01 Stage of : Antepartum Maternal Assessment Level of Consciousness: Fully Conscious Headache: Denies Nausea/Vomiting: Denies RUQ Epigastric Pain: Denies Labor Evaluation Frequency: irregular Monitor Mode: External Heart Rate FHR Baseline Rate: 135 Monitor Mode: External US Variability: Minimal - Undetectable to <=5 bpm Decelerations: None Pain Assessment Pain Scale: 0 Pain Presence: None/Denies Vaginal Bleeding: None Datetime: 05/07/2018 17:31 Resting Tone [place]: Relaxed Pain Presence: None/Denies Datetime: 05/07/2018 17:25 Contraction Comments: rn noted increase w/ uc's p/u/ by toco Datetime: 05/07/2018 17:23 Stage of : Antepartum Maternal Assessment Level of Consciousness: Fully Conscious Headache: Denies Nausea/Vomiting: Denies RUQ Epigastric Pain: Denies Labor Evaluation Frequency: 4/hr Monitor Mode: External Duration (sec)2399: 60-90 Quality: Mild Heart Rate FHR Baseline Rate: 130 Monitor Mode: External US Variability: Minimal - Undetectable to <=5 bpm Accelerations: 10X10 Decelerations: None Pain Assessment Pain Scale: 0 Pain Presence: None/Denies Vaginal Bleeding: None Datetime: 05/07/2018 16:03 Stage of : Antepartum Maternal Assessment Level of Consciousness: Fully Conscious Headache: Denies Nausea/Vomiting: Denies RUQ Epigastric Pain: Denies Labor Evaluation Frequency: 0/hr Monitor Mode: External Heart Rate FHR Baseline Rate: 130 Monitor Mode: External US Variability: Minimal - Undetectable to <=5 bpm Accelerations: 10X10 Pain Assessment Pain Scale: 0 Pain Presence: None/Denies Vaginal Bleeding: None Datetime: 05/07/2018 15:54 Maternal Assessment Level of Consciousness: Fully Conscious Headache: Denies Blurred Vision: No Respiratory Effort: Unlabored Nausea/Vomiting: Denies RUQ Epigastric Pain: Denies Monitor Mode: External Resting Tone [place]: Relaxed Pain Presence: None/Denies Datetime: 05/07/2018 15:12 Stage of : Antepartum Maternal Assessment Level of Consciousness: Fully Conscious DTR's/Clonus: DTRs 2+ Headache: Denies Nausea/Vomiting: Denies RUQ Epigastric Pain: Denies Labor Evaluation Frequency: 0/hr Monitor Mode: External Heart Rate FHR Baseline Rate: 130 Monitor Mode: External US Variability: Minimal - Undetectable to <=5 bpm Accelerations: 10X10 Pain Assessment Pain Scale: 0 Pain Presence: None/Denies Vaginal Bleeding: None Datetime: 05/07/2018 13:14 Pain Presence: None/Denies Datetime: 05/07/2018 13:10 Stage of : Antepartum Maternal Assessment Level of Consciousness: Fully Conscious DTR's/Clonus: DTRs 2+ Headache: Denies Nausea/Vomiting: Denies RUQ Epigastric Pain: Denies Labor Evaluation Frequency: 0/hr Monitor Mode: External Heart Rate FHR Baseline Rate: 130 Monitor Mode: External US Variability: Minimal - Undetectable to <=5 bpm Accelerations: 10X10 Pain Assessment Pain Scale: 0 Pain Presence: None/Denies Membrane Status: Intact Vaginal Bleeding: None Datetime: 05/07/2018 11:12 Monitor Mode: External Resting Tone [place]: Relaxed Monitor Mode: External US Comments: abdominal skin intact Pain Presence: None/Denies Datetime: 05/07/2018 10:43 Heart Rate FHR Baseline Rate: 135 Monitor Mode: External US Variability: Moderate 6-25 bpm Accelerations: 10X10 Decelerations: None Comments: melanie periods minimal variability. pt. on magnesium sulfate Datetime: 05/07/2018 10:00 Labor Evaluation Frequency: 0/hr Monitor Mode: External Heart Rate FHR Baseline Rate: 130 Monitor Mode: External US Variability: Minimal - Undetectable to <=5 bpm Accelerations: 10X10 Datetime: 05/07/2018 09:42 Maternal Assessment Level of Consciousness: Fully Conscious DTR's/Clonus: DTRs 2+ Headache: Denies Blurred Vision: No Respiratory Effort: Unlabored Nausea/Vomiting: Denies RUQ Epigastric Pain: Denies Pain Presence: None/Denies Datetime: 05/07/2018 09:25 Pain Presence: None/Denies Datetime: 05/07/2018 09:03 Comments: u.s. at bedside Datetime: 05/07/2018 08:43 Heart Rate FHR Baseline Rate: 130 Monitor Mode: External US Variability: Moderate 6-25 bpm Accelerations: None Decelerations: None Comments: ega 30.3 pt. on 2gm/hr of magnesium sufate Datetime: 05/07/2018 08:27 Maternal Assessment Level of Consciousness: Fully Conscious Headache: Denies Blurred Vision: No Respiratory Effort: Unlabored Nausea/Vomiting: Denies Monitor Mode: External Monitor Mode: External US Pain Presence: None/Denies Datetime: 05/07/2018 08:21 Stage of : Antepartum Assessment Type: Ongoing Assessment Maternal Assessment Level of Consciousness: Fully Conscious DTR's/Clonus: DTRs 2+ Headache: Denies Blurred Vision: No Respiratory Effort: Unlabored Breath Sounds, Left: Clear and Equal Breath Sounds, Right: Clear and Equal Nausea/Vomiting: Denies RUQ Epigastric Pain: Denies Temperature Route: Oral Monitor Mode: External Resting Tone [place]: Relaxed Pain Presence: None/Denies Vaginal Bleeding: None Datetime: 05/07/2018 07:16 Stage of : Antepartum Datetime: 05/07/2018 07:15 Labor Evaluation Frequency: occassional Monitor Mode: External Quality: Mild Resting Tone [place]: Relaxed Contraction Comments: pt. denies uc's or cramping at this time Pain Presence: None/Denies Datetime: 05/07/2018 07:00 Labor Evaluation Frequency: X1 Monitor Mode: External Duration (sec)2399: 50 Resting Tone [place]: Relaxed Heart Rate FHR Baseline Rate: 135 Monitor Mode: External US Variability: Moderate 6-25 bpm Accelerations: None Decelerations: None Category: Category I Pain Presence: None/Denies Pain Type: N/A Datetime: 05/07/2018 06:58 Stage of : Antepartum Datetime: 05/07/2018 06:00 Maternal Assessment Level of Consciousness: Fully Conscious DTR's/Clonus: DTRs 2+; No Clonus Labor Evaluation Frequency: NONE Monitor Mode: External Resting Tone [place]: Relaxed Heart Rate FHR Baseline Rate: 130 Monitor Mode: External US Variability: Moderate 6-25 bpm Accelerations: None Decelerations: None Category: Category I Pain Presence: None/Denies Pain Type: N/A Datetime: 05/07/2018 05:22 Monitor Mode: External US Datetime: 05/07/2018 05:00 Labor Evaluation Frequency: NONE Monitor Mode: External Resting Tone [place]: Relaxed Heart Rate FHR Baseline Rate: 135 Monitor Mode: External US Variability: Moderate 6-25 bpm Accelerations: 15X15 Decelerations: None Category: Category I Pain Presence: None/Denies Pain Type: N/A Datetime: 05/07/2018 04:00 Maternal Assessment Level of Consciousness: Fully Conscious DTR's/Clonus: DTRs 2+; No Clonus Headache: Denies Breath Sounds, Left: Clear and Equal Breath Sounds, Right: Clear and Equal Labor Evaluation Frequency: NONE Monitor Mode: External Resting Tone [place]: Relaxed Heart Rate FHR Baseline Rate: 130 Monitor Mode: External US Variability: Minimal - Undetectable to <=5 bpm Accelerations: None Decelerations: Variable Category: Category II Pain Presence: None/Denies Pain Type: N/A Datetime: 05/07/2018 03:34 Monitor Mode: External US Datetime: 05/07/2018 03:00 Labor Evaluation Frequency: X3 Monitor Mode: External Duration (sec)2399: 80-100 Quality: Mild Resting Tone [place]: Relaxed Heart Rate FHR Baseline Rate: 130 Monitor Mode: External US Variability: Moderate 6-25 bpm Accelerations: None Decelerations: None Category: Category I Pain Presence: None/Denies Pain Type: N/A Datetime: 05/07/2018 02:14 Monitor Mode: External US Datetime: 05/07/2018 02:09 Stage of : Antepartum Datetime: 05/07/2018 02:00 DTR's/Clonus: DTRs 2+; No Clonus Labor Evaluation Frequency: NONE Monitor Mode: External Resting Tone [place]: Relaxed Heart Rate FHR Baseline Rate: 130 Monitor Mode: External US Variability: Moderate 6-25 bpm Accelerations: None Decelerations: None Category: Category I Pain Presence: None/Denies Pain Type: N/A Datetime: 05/07/2018 01:32 Pain Presence: None/Denies Pain Type: N/A Datetime: 05/07/2018 01:00 Labor Evaluation Frequency: NONE Monitor Mode: External Resting Tone [place]: Relaxed Heart Rate FHR Baseline Rate: 130 Monitor Mode: Internal Scalp Electrode Variability: Moderate 6-25 bpm Accelerations: None Decelerations: None Category: Category I Pain Presence: None/Denies Pain Type: N/A Pain Assessment Comments: PT SLEEPING WITH EVEN UNLABORED BREATHING Datetime: 05/07/2018 00:00 Maternal Assessment Level of Consciousness: Fully Conscious DTR's/Clonus: DTRs 2+; No Clonus Breath Sounds, Left: Clear and Equal Breath Sounds, Right: Clear and Equal Labor Evaluation Frequency: X3 Monitor Mode: External Duration (sec)2399: 80-100 Quality: Mild Resting Tone [place]: Relaxed Contraction Comments: PT DENIES CRAMPING Heart Rate FHR Baseline Rate: 130 Monitor Mode: External US Variability: Moderate 6-25 bpm Accelerations: 15X15 Decelerations: None Category: Category I Pain Presence: None/Denies Pain Type: N/A Datetime: 05/06/2018 23:00 Labor Evaluation Frequency: NONE Monitor Mode: Internal Resting Tone [place]: Relaxed Heart Rate FHR Baseline Rate: 135 Monitor Mode: External US Variability: Moderate 6-25 bpm Accelerations: 15X15 Decelerations: None Category: Category I Pain Presence: None/Denies Pain Type: N/A Datetime: 05/06/2018 22:25 Monitor Mode: External US Datetime: 05/06/2018 22:00 DTR's/Clonus: DTRs 2+; No Clonus Labor Evaluation Frequency: NONE Monitor Mode: External Resting Tone [place]: Relaxed Heart Rate FHR Baseline Rate: 140 Monitor Mode: External US Variability: Moderate 6-25 bpm Accelerations: 15X15 Decelerations: None Category: Category I Pain Presence: None/Denies Pain Type: N/A Datetime: 05/06/2018 21:00 Labor Evaluation Frequency: NONE Monitor Mode: External Resting Tone [place]: Relaxed Heart Rate FHR Baseline Rate: 140 Monitor Mode: External US Variability: Moderate 6-25 bpm Accelerations: None Decelerations: Variable Category: Category II Pain Presence: None/Denies Pain Type: N/A Datetime: 05/06/2018 20:49 Stage of : Antepartum Datetime: 05/06/2018 20:00 DTR's/Clonus: DTRs 2+; No Clonus Headache: Denies Blurred Vision: Yes Breath Sounds, Left: Clear and Equal Breath Sounds, Right: Clear and Equal Nausea/Vomiting: Denies Labor Evaluation Frequency: NONE Monitor Mode: External Resting Tone [place]: Relaxed Heart Rate FHR Baseline Rate: 142 Monitor Mode: External US Variability: Moderate 6-25 bpm Accelerations: None Decelerations: None Category: Category I Pain Presence: None/Denies Pain Type: N/A Datetime: 05/06/2018 19:16 Stage of : Antepartum Assessment Type: Ongoing Assessment Maternal Assessment Level of Consciousness: Fully Conscious DTR's/Clonus: DTRs 2+; No Clonus Headache: Denies Blurred Vision: No Respiratory Effort: Unlabored; Regular Rhythm; Equal Expansion Breath Sounds, Left: Clear and Equal Breath Sounds, Right: Clear and Equal Nausea/Vomiting: Denies RUQ Epigastric Pain: Denies Lower Extremities Edema: None Degree: None Upper Extremities Edema: None Degree: None Facial Edema: None Temperature Route: Oral Fall Risk Assessment History of Falling: (0) No Secondary Diagnosis: (0) No Ambulatory Aid: (0) Bedrest/Nurse Assist IV Therapy: (0) No Gait: (0) Normal/Bedrest/Immobile Mental Status: (0) Oriented to Own Ability Fall Score: 0 Fall Risk Score Definition: No Risk: No action required Monitor Mode: External Contraction Comments: PT DENIES CRAMPNG Monitor Mode: External US Comments: PT STATES + FM Pain Presence: None/Denies Pain Type: N/A Membrane Status: Intact Vaginal Bleeding: None Datetime: 05/06/2018 19:00 Stage of : Antepartum Maternal Assessment Level of Consciousness: Fully Conscious DTR's/Clonus: DTRs 2+ Headache: Denies Breath Sounds, Left: Clear and Equal Breath Sounds, Right: Clear and Equal Nausea/Vomiting: Denies RUQ Epigastric Pain: Denies Labor Evaluation Frequency: x2 Monitor Mode: External Duration (sec)2399: 60 Quality: Mild Pattern: Normal: <= 5 Contractions in 10 Minutes Resting Tone [place]: Relaxed Heart Rate FHR Baseline Rate: 140 Monitor Mode: External US FHR Baseline Changes: No Baseline Change Variability: Moderate 6-25 bpm Pain Presence: None/Denies Pain Type: N/A Datetime: 05/06/2018 18:00 Stage of : Antepartum Maternal Assessment Level of Consciousness: Fully Conscious DTR's/Clonus: DTRs 2+ Headache: Denies Breath Sounds, Left: Clear and Equal Breath Sounds, Right: Clear and Equal Nausea/Vomiting: Denies RUQ Epigastric Pain: Denies Labor Evaluation Frequency: x1 Monitor Mode: External Duration (sec)2399: 60 Quality: Mild Pattern: Normal: <= 5 Contractions in 10 Minutes Resting Tone [place]: Relaxed Heart Rate FHR Baseline Rate: 140 Monitor Mode: External US FHR Baseline Changes: No Baseline Change Variability: Moderate 6-25 bpm Pain Presence: None/Denies Pain Type: N/A Datetime: 05/06/2018 17:00 Labor Evaluation Frequency: x3 Monitor Mode: External Duration (sec)2399: 60 Quality: Mild Pattern: Normal: <= 5 Contractions in 10 Minutes Resting Tone [place]: Relaxed Heart Rate FHR Baseline Rate: 140 Monitor Mode: External US FHR Baseline Changes: No Baseline Change Variability: Moderate 6-25 bpm Pain Presence: None/Denies Pain Type: N/A Datetime: 05/06/2018 16:07 Stage of : Antepartum Temperature Route: Oral Datetime: 05/06/2018 16:00 Maternal Assessment Level of Consciousness: Fully Conscious DTR's/Clonus: DTRs 2+ Headache: Denies Breath Sounds, Left: Clear and Equal Breath Sounds, Right: Clear and Equal Nausea/Vomiting: Denies RUQ Epigastric Pain: Denies Labor Evaluation Frequency: 12 Monitor Mode: External Duration (sec)2399: 40-70 Quality: Mild Pattern: Normal: <= 5 Contractions in 10 Minutes Heart Rate FHR Baseline Rate: 145 Monitor Mode: External US FHR Baseline Changes: No Baseline Change Variability: Moderate 6-25 bpm Accelerations: 10X10 Decelerations: None Datetime: 05/06/2018 15:00 Labor Evaluation Frequency: 12 Monitor Mode: External Duration (sec)2399: 40-70 Quality: Mild Pattern: Normal: <= 5 Contractions in 10 Minutes Heart Rate FHR Baseline Rate: 145 Monitor Mode: External US FHR Baseline Changes: No Baseline Change Variability: Moderate 6-25 bpm Accelerations: 10X10 Decelerations: None Pain Assessment Pain Scale: 2 Pain Presence: Intermittent Pain Type: Cramping Pain Location: Abdomen; Back Pain Relief Measures: Comfort Measures Datetime: 05/06/2018 14:00 Stage of : Antepartum Maternal Assessment Level of Consciousness: Fully Conscious DTR's/Clonus: DTRs 2+ Headache: Denies Breath Sounds, Left: Clear and Equal Breath Sounds, Right: Clear and Equal Nausea/Vomiting: Denies RUQ Epigastric Pain: Denies Labor Evaluation Frequency: 6 Monitor Mode: External Duration (sec)2399: 40-70 Pattern: Normal: <= 5 Contractions in 10 Minutes Heart Rate FHR Baseline Rate: 145 Monitor Mode: External US FHR Baseline Changes: No Baseline Change Variability: Moderate 6-25 bpm Accelerations: 10X10 Decelerations: None Pain Assessment Pain Scale: 2 Pain Presence: Intermittent Pain Type: Cramping Pain Location: Abdomen; Back Pain Relief Measures: Comfort Measures Datetime: 05/06/2018 13:55 Comments: loss of contact, pt sitting up for lunch Datetime: 05/06/2018 13:00 Labor Evaluation Frequency: 6 Monitor Mode: External Duration (sec)2399: 40-70 Quality: Mild Pattern: Normal: <= 5 Contractions in 10 Minutes Heart Rate FHR Baseline Rate: 145 Monitor Mode: External US FHR Baseline Changes: No Baseline Change Variability: Moderate 6-25 bpm Accelerations: 10X10 Decelerations: None Pain Assessment Pain Scale: 2 Pain Presence: Intermittent Pain Type: Cramping Pain Location: Abdomen; Back Pain Relief Measures: Comfort Measures Datetime: 05/06/2018 12:16 Stage of : Antepartum Temperature Route: Oral Pain Assessment Pain Scale: 2 Pain Presence: Intermittent Pain Type: Cramping Pain Location: Abdomen; Back Datetime: 05/06/2018 12:07 Stage of : Antepartum Datetime: 05/06/2018 12:00 Maternal Assessment Level of Consciousness: Fully Conscious DTR's/Clonus: DTRs 2+ Headache: Denies Breath Sounds, Left: Clear and Equal Breath Sounds, Right: Clear and Equal Nausea/Vomiting: Denies RUQ Epigastric Pain: Denies Labor Evaluation Frequency: x2 Monitor Mode: External Duration (sec)2399: 66 Quality: Mild Pattern: Normal: <= 5 Contractions in 10 Minutes Resting Tone [place]: Relaxed Heart Rate FHR Baseline Rate: 145 Monitor Mode: External US FHR Baseline Changes: No Baseline Change Variability: Moderate 6-25 bpm Accelerations: 10X10 Decelerations: None Datetime: 05/06/2018 11:00 Labor Evaluation Frequency: 8 Monitor Mode: External Duration (sec)2399: 50 Quality: Mild Pattern: Normal: <= 5 Contractions in 10 Minutes Resting Tone [place]: Relaxed Heart Rate FHR Baseline Rate: 145 Monitor Mode: External US FHR Baseline Changes: No Baseline Change Variability: Moderate 6-25 bpm Accelerations: 10X10 Decelerations: None Datetime: 05/06/2018 10:00 Labor Evaluation Frequency: 2-6 Monitor Mode: External Duration (sec)2399: 60 Quality: Mild Pattern: Normal: <= 5 Contractions in 10 Minutes Resting Tone [place]: Relaxed Heart Rate FHR Baseline Rate: 145 Monitor Mode: External US FHR Baseline Changes: No Baseline Change Variability: Moderate 6-25 bpm Accelerations: 10X10 Decelerations: None Pain Assessment Pain Scale: 4 Pain Presence: Intermittent Pain Type: Cramping Pain Location: Abdomen; Back Pain Relief Measures: Comfort Measures Datetime: 05/06/2018 09:35 Stage of : Antepartum Datetime: 05/06/2018 08:17 Monitor Mode: Internal Monitor Mode: External US Datetime: 05/06/2018 08:07 Stage of : Antepartum Temperature Route: Oral Pain Assessment Pain Scale: 0 Pain Presence: None/Denies Pain Type: N/A Datetime: 05/06/2018 08:00 Stage of : Antepartum Labor Evaluation Frequency: none Monitor Mode: External Resting Tone [place]: Relaxed Datetime: 05/06/2018 07:18 Stage of : Antepartum Datetime: 05/06/2018 07:00 Labor Evaluation Frequency: none Monitor Mode: External Resting Tone [place]: Relaxed Datetime: 05/06/2018 06:00 Labor Evaluation Frequency: none Monitor Mode: External Resting Tone [place]: Relaxed Datetime: 05/06/2018 05:00 Labor Evaluation Frequency: none Monitor Mode: External Resting Tone [place]: Relaxed Datetime: 05/06/2018 04:26 Stage of : Antepartum Temperature Route: Oral Pain Assessment Pain Scale: 0 Pain Presence: None/Denies Pain Goal: 0 Datetime: 05/06/2018 04:00 Labor Evaluation Frequency: x2 Monitor Mode: External Duration (sec)2399: 40 Quality: Mild Resting Tone [place]: Relaxed Contraction Comments: pt without complaint of uc pain. Datetime: 05/06/2018 03:00 Labor Evaluation Frequency: none Monitor Mode: External Resting Tone [place]: Relaxed Datetime: 05/06/2018 02:00 Labor Evaluation Frequency: x1 Monitor Mode: External Duration (sec)2399: 50 Quality: Mild Resting Tone [place]: Relaxed Contraction Comments: pt resting without apparent disress. Datetime: 05/06/2018 01:00 Labor Evaluation Frequency: none Monitor Mode: External Resting Tone [place]: Relaxed Datetime: 05/06/2018 00:32 Labor Evaluation Frequency: none Monitor Mode: External Resting Tone [place]: Relaxed Heart Rate FHR Baseline Rate: 140 Monitor Mode: External US FHR Baseline Changes: No Baseline Change Variability: Moderate 6-25 bpm Accelerations: 10X10 Decelerations: None Category: Category I Comments: nst reactive and reassuring. +FM noted. EFM off Datetime: 05/06/2018 00:01 Stage of : Antepartum Temperature Route: Oral Pain Assessment Pain Scale: 0 Pain Presence: None/Denies Pain Goal: 0 Datetime: 05/06/2018 00:00 Labor Evaluation Frequency: x1 Monitor Mode: External Duration (sec)2399: 80 Quality: Mild Resting Tone [place]: Relaxed Contraction Comments: pt without complaint of uc pain. Heart Rate FHR Baseline Rate: 140 Monitor Mode: External US FHR Baseline Changes: No Baseline Change Variability: Moderate 6-25 bpm Accelerations: 10X10 Decelerations: Variable Category: Category II Datetime: 05/05/2018 23:00 Labor Evaluation Frequency: x3 Monitor Mode: External Duration (sec)2399: 50-70 Quality: Mild Resting Tone [place]: Relaxed Contraction Comments: pt without complaint of uc pain. Heart Rate FHR Baseline Rate: 140 Monitor Mode: External US FHR Baseline Changes: No Baseline Change Variability: Moderate 6-25 bpm Accelerations: 10X10 Decelerations: Variable Category: Category II Datetime: 05/05/2018 22:33 Assessment Type: Transfer/Discharge Maternal Assessment Level of Consciousness: Fully Conscious DTR's/Clonus: DTRs 2+ Headache: Denies Blurred Vision: No Datetime: 05/05/2018 22:32 Stage of : Antepartum Temperature Route: Oral Pain Assessment Pain Scale: 0 Pain Presence: None/Denies Pain Goal: 0 Datetime: 05/05/2018 20:04 Stage of : Antepartum Assessment Type: Ongoing Assessment Maternal Assessment Level of Consciousness: Fully Conscious DTR's/Clonus: DTRs 2+; No Clonus Headache: Denies Blurred Vision: No Respiratory Effort: Unlabored; Regular Rhythm; Equal Expansion Breath Sounds, Left: Clear and Equal Breath Sounds, Right: Clear and Equal Nausea/Vomiting: Denies RUQ Epigastric Pain: Denies Lower Extremities Edema: None Degree: None Upper Extremities Edema: None Degree: None Facial Edema: None Temperature Route: Oral Fall Risk Assessment History of Falling: (0) No Secondary Diagnosis: (0) No Ambulatory Aid: (0) Bedrest/Nurse Assist IV Therapy: (20) Yes Gait: (0) Normal/Bedrest/Immobile Mental Status: (0) Oriented to Own Ability Fall Score: 20 Fall Risk Score Definition: No Risk: No action required Pain Assessment Pain Scale: 0 Pain Presence: None/Denies Pain Type: N/A Datetime: 05/05/2018 19:53 Labor Evaluation Frequency: X1 Monitor Mode: External Duration (sec)2399: 60 Pattern: Normal: <= 5 Contractions in 10 Minutes Resting Tone [place]: Relaxed Monitor Mode: External US Variability: Moderate 6-25 bpm Accelerations: 15X15 Decelerations: None Category: Category I Datetime: 05/05/2018 19:25 Stage of : Antepartum Labor Evaluation Frequency: X1 Monitor Mode: External Duration (sec)2399: 60 Pattern: Normal: <= 5 Contractions in 10 Minutes Resting Tone [place]: Relaxed Contraction Comments: PT DENIES FEELING UC'S OR CRAMPING. Heart Rate FHR Baseline Rate: 155 Monitor Mode: External US Variability: Moderate 6-25 bpm Accelerations: 15X15 Decelerations: Variable Category: Category II Pain Assessment Pain Scale: 0 Pain Presence: None/Denies Pain Type: N/A Datetime: 05/05/2018 16:31 Fall Score: 0 Fall Risk Score Definition: No Risk: No action required Datetime: 05/05/2018 13:46 EGA: 30.2
[2018-06-05] MEDS: NIFEdipine 10 MG CAP PO SCH ×2 (14:33→22:11)
[2018-06-05] MEDS: LACTATED RINGER'S 1,000 ML IV SCH (17:41)
[2018-06-05] MEDS: ACCU-CHEK XX SCH (20:54)
[2018-06-06] MEDS: LACTATED RINGER'S 1,000 ML IV SCH ×2 (02:17→20:00)
[2018-06-06] MEDS: NIFEdipine 10 MG CAP PO SCH ×2 (05:47→14:20)
[2018-06-06] MEDS: ACCU-CHEK XX SCH ×3 (08:00→14:21)
--- NOTE | 2018-06-06 19:50 | PN ---
Date/Time of Note Date/Time of Note DATE: 06/06/18 TIME: 19:44 OB Subjective Subjective Subjective Patient seen and examined. She states good movement. She denies nausea, vomiting, shortness of breath, chest pain, abdominal pain,headache, visual changes, vaginal bleeding or LOF. OB Objective Objective Objective General: Patient appears well, alert and oriented, NAD, appropriate mood and affect ABD: gravid, soft, non-tender. Back: No CVA tenderness (B/L) LE: Mild edema. No clubbing, cyanosis, edema, thigh or calf tenderness bilaterally FHT: 135 bpm , moderate variability with acceleration, no deceleration-category I Contractions: None OB Assessment/Plan Other plan: 37 Year-old G [id number] with SIUP at 34 weeks and 6 days with advanced maternal age, diabetes and history of delivery at 34 weeks on the labor in current s/p receiving magnesium sulfate and steroid on 05/06/2018 admitted for close monitoring due to 10 x 10 accelerations which noted during performing NST at NST completed. Currently FHR: Reassuring. No sign of metabolic acidosis- Category I. She has no uterine contractions. heart rate stripped reviewed by Dr. Ermelinda mallory who recommended discharging patient home with follow-up antepartum testing at [facility]. Ultrasound performed: Normal SUKHDEV, BPP 8 out of 8. Regarding A1 gestational diabetes, she will continue checking fasting blood sugar at 2-hour postprandial. All blood sugar log care where normal in hospital. Symptoms and sign of labor, preeclampsia, kick count discussed with patient, she voiced understanding. All of her questions answered. -Patient was discharged home in stable condition with the appropriate discharge instructions provided. I would like patient to have close follow-up with her primary physician or outpatient clinic in 1-2 days or return to triage for worsening symptoms or any other urgent concerns. PARUL TONG Jun 06, 2018 19:50
== END 2018-06-06 20:15 | disposition home or self-care (01) | DRG 998 ==
LOC: OBT 11:15 → L-D 11:16 → OBT 13:35 → PP1 13:50
PROVIDERS: ADMIT Obstetrics & Gynecology; ATTEND Obstetrics & Gynecology
DX: O76 Abnormality in fetal heart rate and rhythm complicating labor and delivery (principal); Z3A.34 34 weeks gestation of pregnancy; O09.523 Supervision of elderly multigravida, third trimester; Z87.51 Personal history of pre-term labor; O24.419 Gestational diabetes mellitus in pregnancy, unspecified control
CPT/HCPCS: 82962; 84112; 87081; G0463; J7120

== ENCOUNTER 2018-06-14 23:08 | Inpatient (IN) | payer MEDICAID ==
[~2018-06-14] VITALS: Ht 116.8 cm; Wt 73.3 kg
[~2018-06-14 23:08] MED LIST changes: +NIFE10CA PO
[2018-06-14 23:32] VITALS: BP 118/73; PULSE 71; RESP 18
[2018-06-14] MEDS ORDERED: LACTATED RINGER'S 1,000 ML IV SCH (23:57)
[2018-06-15] MEDS ORDERED: LIDOCAINE 1% (MPF) 30 ML INJ INJ PRN
[2018-06-15] MEDS ORDERED: OXYTOCIN 30 UNITS/LR 500 ML IV SCH ×2
[2018-06-15] MEDS ORDERED: MINERAL OIL LIGHT 10 ML VIAL TOP PRN
[2018-06-15] MEDS ORDERED: AMPICILLIN 2 GM/NS (PMX) 100 ML IV ONE
[2018-06-15] MEDS ORDERED: BUTORPHANOL 2 MG INJ IV PRN
[2018-06-15] MEDS ORDERED: IBUPROFEN 600 MG TAB PO PRN
--- NOTE | 2018-06-15 01:22 | HP ---
Date/Time of Note Date/Time of Note DATE: 06/15/18 TIME: 01:14 OB - History Hx of Present Free Text/Dictation 37y.0 here at 36 w in active labor with srom at 2100 06/14/18 VE /-2 clear fluid GBS not known has been on procardia for hx of PTB also A1DM also treated with BMZ on 05/06/18 admitted for expectant management. add 2gm ampicillin given for unknown GBS Chief Complaint: uc's with SROM Estimated Due Date: Jul 14, 2018 : 5 Para: 2 Spontaneous : 1 Therapeutic : 0 Care: Good Care Ultrasounds: Normal mid trimester US Obstetrical Complications: Gestational Hypertension, Other (PTL) Medical Complications: None Past Family/Social History * Past Medical, Surgical, Family and Obstetric Histories reviewed from chart. Blood Type: O- Rubella: immune RPR/VDRL: Negative GBS Status: Unknown HBsAG: Negative OB Admission Exam Vital Signs Vital Signs Vital Signs Date Temp Pulse Resp B/P (MAP) Pulse Ox O2 O2 Flow FiO2 Time Delivery Rate 06/14/18 98.1 71 18 118/73 Room Air 23:32 (88) Physical Exam HEENT: WNL Heart: Rhythm Normal Lungs: Clear, Equal Abdomen: WNL Extremities: Normal Reflexes: Normal Cervical Dilatation: 3cm Effacement: 75% Station: -2 Membranes: Ruptured Amniotic Fluid: Clear Heart Rate: 140's Accelerations: Accelerations Present Decelerations: No Decelerations Varibility: Moderate Intensity: Firm Last 72 hours Lab Results CBC & BMP 06/14/18 00:20 OB Assessment/Plan Reason for admission: labor Other Assessment: [id number] Plan: Expectant Management SCOTT HODGE MD June 15, 2018 01:22
--- NOTE | 2018-06-15 01:25 | LDN ---
Date/Time of Note Date/Time of Note DATE: 06/15/18 TIME: 01:23 Delivery Summary of male Weeks of Gestation 36w Placenta Delivered: Spontaneously, Intact & Complete Meconium: none Episiotomy: No Perineal laceration: 1 Laceration repair: 000ch gut Anesthesia type: Local Estimated blood loss: 70 Sponge & Needle done & correct: Yes All needle counts correct: Yes Any foreign bodies felt in the: No Infant Delivery Information Sex Infant Sex: male Apgars 1 Minute: 9 5 Minute: 9 Suctioning Nose & mouth suctioned at taylor: Yes Delee suction performed: Yes Umbilical Cord Umbilical cord with: 3 Vessels Cord presentations: no nuchal cord Cord Blood was obtained: Yes Mother & Baby Disposition Disposition Mom & Baby to Maternity; Good: Yes Mom transferred to: Other Baby to NICU: No () SCOTT HODGE MD June 15, 2018 01:25
[2018-06-15] MEDS ORDERED: OXYCODONE/ASPIRIN (4.88/325) TAB PO ONE (01:30)
--- NOTE | 2018-06-15 02:14 | TRIAGE ---
OB Triage Datetime Report Generated by CPN: 06/15/2018 02:13 Datetime: 06/15/2018 01:57 Stage of : Recovery Datetime: 06/15/2018 01:46 Stage of : Recovery Pain Assessment Pain Scale: 9 Pain Presence: Constant Pain Type: Burning; Cramping Pain Location: Abdomen; Perineum Pain Goal: 0 Pain Relief Measures: Comfort Measures Datetime: 06/15/2018 01:31 Stage of : Recovery Pain Assessment Pain Scale: 9 Pain Presence: Constant Pain Type: Burning; Cramping Pain Location: Abdomen; Perineum Pain Goal: 0 Pain Relief Measures: Comfort Measures Datetime: 06/15/2018 01:21 Stage of : Recovery Pain Assessment Pain Scale: 9 Pain Presence: Constant Pain Type: Burning; Cramping Pain Location: Abdomen; Perineum Pain Goal: 0 Pain Relief Measures: Pain Medication Given; Comfort Measures Datetime: 06/15/2018 01:16 Stage of : Recovery Pain Assessment Pain Scale: 9 Pain Presence: Constant Pain Type: Burning; Cramping Pain Location: Abdomen; Perineum Pain Goal: 0 Pain Relief Measures: Comfort Measures Datetime: 06/15/2018 01:01 Stage of : Recovery Temperature Route: Oral Pain Assessment Pain Scale: 9 Pain Presence: Constant Pain Type: Burning; Cramping Pain Location: Abdomen; Perineum Pain Goal: 0 Pain Relief Measures: Comfort Measures Datetime: 06/15/2018 00:39 Vaginal Exam Dilatation (cms): 10.0 Effacement (%): 100 Station: 0 Exam By: C ANGELIQUE Datetime: 06/15/2018 00:29 Vaginal Exam Dilatation (cms): 9.0 Effacement (%): 90 Station: 0 Exam By: C ANGELIQUE Datetime: 06/15/2018 00:00 Assessment Type: Admission Assessment Time of Arrival: 06/15/2018 00:00 EGA: 36.1 Arrived By: Stretcher Arrived From: TRIAGE Vaginal Bleeding: Normal Show Maternal Assessment Level of Consciousness: Fully Conscious DTR's/Clonus: DTRs 2+; No Clonus Headache: Denies Blurred Vision: No Respiratory Effort: Unlabored; Regular Rhythm; Equal Expansion Breath Sounds, Left: Clear and Equal Breath Sounds, Right: Clear and Equal Nausea/Vomiting: Denies RUQ Epigastric Pain: Denies Lower Extremities Edema: None Degree: None Upper Extremities Edema: None Degree: None Facial Edema: None Fall Risk Assessment History of Falling: (0) No Secondary Diagnosis: (0) No Ambulatory Aid: (0) Bedrest/Nurse Assist IV Therapy: (0) No Gait: (0) Normal/Bedrest/Immobile Mental Status: (0) Oriented to Own Ability Fall Score: 0 Fall Risk Score Definition: No Risk: No action required Pain Assessment Pain Scale: 9 Pain Presence: Intermittent Pain Type: Contraction Pain Location: Abdomen; Back Pain Goal: 0 Datetime: 06/14/2018 23:47 Stage of : OB Triage Labor Evaluation Frequency: 5-7 Monitor Mode: External Duration (sec)2399: 60-90 Quality: Moderate Pattern: Normal: <= 5 Contractions in 10 Minutes Resting Tone [place]: Relaxed Heart Rate FHR Baseline Rate: 140 Monitor Mode: External US FHR Baseline Changes: No Baseline Change Variability: Moderate 6-25 bpm Accelerations: 15X15 Vaginal Exam Dilatation (cms): 3.0 Effacement (%): 70 Station: -2 Exam By: Wale Lr Membrane Status: Ruptured Membranes Rupture Method: Spontaneous Amniotic Fluid Color: Clear Amniotic Fluid Amount: Moderate Amniotic Fluid Odor: Normal Vaginal Bleeding: None Pool: Positive Nitrazine: Positive Cervix, Consistency: Soft Cervix, Position: Posterior Presentation 'A': Cephalic Datetime: 06/14/2018 23:19 Stage of : OB Triage Maternal Assessment Level of Consciousness: Fully Conscious Headache: Denies Blurred Vision: No Nausea/Vomiting: Denies RUQ Epigastric Pain: Denies Facial Edema: None Monitor Mode: External Resting Tone [place]: Relaxed Heart Rate FHR Baseline Rate: 145 Monitor Mode: External US Pain Assessment Pain Scale: 6 Pain Presence: Intermittent Pain Type: Contraction Pain Location: Abdomen Datetime: 06/14/2018 23:16 Time of Arrival: 06/14/2018 23:02 EGA: 36.0 Arrived By: Wheelchair Arrived From: Home Chief Complaint: w/ hx ptl c/o lg gush fluid at 2100 and ucs beg 2200 Movement: Present Contractions: Irregular Time Contractions Began: 06/14/2018 22:00 Rupture of Membranes: Unsure Vaginal Bleeding: None Vaginal Discharge: Present Recent Sexual Intercouse: Denies Abdominal Trauma: Not Applicable Patient Complaints: Cramping Time Provider Notified: 06/14/2018 23:55 Provider Notified: Dr Betts Initial Plan: EFM, SVE Datetime: 06/06/2018 20:15 Stage of : Antepartum Datetime: 06/06/2018 20:08 Stage of : Antepartum Bedside Blood Glucose: 79 Datetime: 06/06/2018 19:50 Stage of : Antepartum Datetime: 06/06/2018 14:21 Bedside Blood Glucose: 116 Datetime: 06/06/2018 14:13 Labor Evaluation Frequency: occasional, no pattern Monitor Mode: External Quality: Mild Resting Tone [place]: Relaxed Contraction Comments: pt denies feeling contractions Heart Rate FHR Baseline Rate: 140 FHR Baseline Changes: No Baseline Change Variability: Moderate 6-25 bpm Accelerations: 15X15 Decelerations: None Category: Category I Datetime: 06/06/2018 12:44 Labor Evaluation Frequency: occasional Monitor Mode: External Quality: Mild Resting Tone [place]: Relaxed Heart Rate FHR Baseline Rate: 135 Monitor Mode: External US FHR Baseline Changes: No Baseline Change Variability: Moderate 6-25 bpm Accelerations: 15X15 Decelerations: None Category: Category I Datetime: 06/06/2018 12:04 Labor Evaluation Frequency: 3 Monitor Mode: External Duration (sec)2399: 60 Quality: Mild Resting Tone [place]: Relaxed Heart Rate FHR Baseline Rate: 135 Monitor Mode: External US FHR Baseline Changes: No Baseline Change Variability: Moderate 6-25 bpm Accelerations: 15X15 Decelerations: None Category: Category I Datetime: 06/06/2018 10:41 Bedside Blood Glucose: 77 Datetime: 06/06/2018 10:24 Labor Evaluation Frequency: 1 Monitor Mode: External Quality: Mild Resting Tone [place]: Relaxed Monitor Mode: External US FHR Baseline Changes: No Baseline Change Variability: Moderate 6-25 bpm Accelerations: 15X15 Decelerations: None Category: Category I Datetime: 06/06/2018 09:01 Labor Evaluation Frequency: 5/hr Monitor Mode: External Quality: Mild Resting Tone [place]: Relaxed Heart Rate FHR Baseline Rate: 130 Monitor Mode: External US FHR Baseline Changes: No Baseline Change Variability: Moderate 6-25 bpm Accelerations: 15X15 Decelerations: None; Variable Category: Category I Datetime: 06/06/2018 08:10 Assessment Type: Ongoing Assessment Maternal Assessment Level of Consciousness: Fully Conscious DTR's/Clonus: DTRs 2+; No Clonus Headache: Denies Blurred Vision: No Respiratory Effort: Unlabored; Regular Rhythm; Equal Expansion Breath Sounds, Left: Clear and Equal Breath Sounds, Right: Clear and Equal Nausea/Vomiting: Denies RUQ Epigastric Pain: Denies Facial Edema: None Fall Risk Assessment History of Falling: (0) No Secondary Diagnosis: (0) No Ambulatory Aid: (0) Bedrest/Nurse Assist IV Therapy: (20) Yes Gait: (0) Normal/Bedrest/Immobile Mental Status: (0) Oriented to Own Ability Fall Score: 20 Fall Risk Score Definition: No Risk: No action required Datetime: 06/06/2018 08:09 Pain Presence: None/Denies Datetime: 06/06/2018 08:00 Labor Evaluation Frequency: 4/hr Monitor Mode: External Duration (sec)2399: 80 Quality: Mild Resting Tone [place]: Relaxed Contraction Comments: pt denies feeling contractions or leaking of fluid or blood Heart Rate FHR Baseline Rate: 135 Monitor Mode: External US FHR Baseline Changes: No Baseline Change Variability: Moderate 6-25 bpm Accelerations: 15X15 Decelerations: None Category: Category I Datetime: 06/06/2018 07:15 Stage of : Antepartum Datetime: 06/06/2018 06:59 Labor Evaluation Frequency: IRREG Monitor Mode: External Duration (sec)2399: 50 Quality: Mild Intensity IUP (mmHg): 120 Resting Tone [place]: Relaxed Heart Rate FHR Baseline Rate: 140 Monitor Mode: External US Variability: Moderate 6-25 bpm Accelerations: 15X15 Decelerations: None Category: Category I Pain Presence: None/Denies Pain Type: N/A Datetime: 06/06/2018 06:45 Stage of : Antepartum Datetime: 06/06/2018 06:30 Stage of : Antepartum Datetime: 06/06/2018 06:00 Labor Evaluation Frequency: X9 Monitor Mode: External Duration (sec)2399: 90-180 Quality: Mild Resting Tone [place]: Relaxed Heart Rate FHR Baseline Rate: 135 Monitor Mode: External US Variability: Moderate 6-25 bpm Accelerations: None Decelerations: None Category: Category I Pain Presence: None/Denies Pain Type: N/A Pain Assessment Comments: PT SLEEPING BUT EASILY AROUSED Datetime: 06/06/2018 05:46 Stage of : Antepartum Temperature Route: Oral Contraction Comments: PT DENIES CRAMPING. Comments: PT STATES + FM Pain Presence: None/Denies Pain Type: N/A Membrane Status: Intact Vaginal Bleeding: None Datetime: 06/06/2018 05:00 Labor Evaluation Frequency: NONE Monitor Mode: External Resting Tone [place]: Relaxed Heart Rate FHR Baseline Rate: 135 Monitor Mode: External US Variability: Moderate 6-25 bpm Accelerations: 15X15 Decelerations: None Category: Category I Pain Presence: None/Denies Pain Type: N/A Pain Assessment Comments: PT SLEEPING WITH EVEN UNLABORED BREATHING Datetime: 06/06/2018 04:00 Labor Evaluation Frequency: X3 Monitor Mode: External Duration (sec)2399: 90-140 Quality: Mild Resting Tone [place]: Relaxed Heart Rate FHR Baseline Rate: 130 Monitor Mode: External US Variability: Moderate 6-25 bpm Accelerations: None Decelerations: None Category: Category I Pain Presence: None/Denies Pain Type: N/A Datetime: 06/06/2018 03:27 Monitor Mode: External Contraction Comments: ADJUSTED Monitor Mode: External US Comments: BELTS REMOVED GAUZE SLEEVE APPLIED Datetime: 06/06/2018 03:00 Labor Evaluation Frequency: NONE Monitor Mode: External Resting Tone [place]: Relaxed Heart Rate FHR Baseline Rate: 135 Monitor Mode: External US Variability: Moderate 6-25 bpm Accelerations: None Decelerations: None Category: Category I Pain Presence: None/Denies Pain Type: N/A Pain Assessment Comments: PT SLEEPING ON HER RT SIDE. Datetime: 06/06/2018 02:17 Stage of : Antepartum Datetime: 06/06/2018 02:10 Stage of : Antepartum Assessment Type: Ongoing Assessment Datetime: 06/06/2018 02:00 Labor Evaluation Frequency: NONE Monitor Mode: External Resting Tone [place]: Relaxed Heart Rate FHR Baseline Rate: 130 Monitor Mode: External US Variability: Moderate 6-25 bpm Accelerations: None Decelerations: Variable Category: Category II Pain Presence: None/Denies Pain Type: N/A Datetime: 06/06/2018 01:00 Labor Evaluation Frequency: NONE Monitor Mode: External Resting Tone [place]: Relaxed Heart Rate FHR Baseline Rate: 140 Monitor Mode: External US Variability: Moderate 6-25 bpm Accelerations: None Decelerations: None Category: Category I Pain Presence: None/Denies Pain Type: N/A Datetime: 06/06/2018 00:00 Labor Evaluation Frequency: NONE Monitor Mode: External Resting Tone [place]: Relaxed Heart Rate FHR Baseline Rate: 140 Monitor Mode: External US Variability: Moderate 6-25 bpm Accelerations: None Decelerations: None Category: Category I Pain Presence: None/Denies Pain Type: N/A Datetime: 06/05/2018 23:15 Stage of : Antepartum Datetime: 06/05/2018 23:00 Labor Evaluation Frequency: NONE Monitor Mode: External Resting Tone [place]: Relaxed Heart Rate FHR Baseline Rate: 140 Monitor Mode: External US Variability: Moderate 6-25 bpm Accelerations: None Decelerations: None Category: Category I Pain Presence: None/Denies Pain Type: N/A Datetime: 06/05/2018 22:20 Stage of : Antepartum Datetime: 06/05/2018 22:11 Stage of : Antepartum Temperature Route: Oral Datetime: 06/05/2018 22:00 Monitor Mode: External Resting Tone [place]: Relaxed Heart Rate FHR Baseline Rate: 140 Monitor Mode: External US Variability: Moderate 6-25 bpm Accelerations: 10X10 Decelerations: None Category: Category I Pain Presence: None/Denies Pain Type: N/A Datetime: 06/05/2018 21:00 Labor Evaluation Frequency: NONE Monitor Mode: External Resting Tone [place]: Relaxed Heart Rate FHR Baseline Rate: 140 Monitor Mode: External US Variability: Moderate 6-25 bpm Accelerations: 15X15 Decelerations: None Category: Category I Pain Presence: None/Denies Pain Type: N/A Datetime: 06/05/2018 20:03 Stage of : Antepartum Assessment Type: Ongoing Assessment Maternal Assessment Level of Consciousness: Fully Conscious DTR's/Clonus: DTRs 2+; No Clonus Headache: Denies Blurred Vision: No Respiratory Effort: Unlabored; Regular Rhythm; Equal Expansion Breath Sounds, Left: Clear and Equal Breath Sounds, Right: Clear and Equal Nausea/Vomiting: Denies RUQ Epigastric Pain: Denies Lower Extremities Edema: None Degree: None Upper Extremities Edema: None Degree: None Facial Edema: None Temperature Route: Oral Fall Risk Assessment History of Falling: (0) No Secondary Diagnosis: (0) No Ambulatory Aid: (0) Bedrest/Nurse Assist IV Therapy: (0) No Gait: (0) Normal/Bedrest/Immobile Mental Status: (0) Oriented to Own Ability Fall Score: 0 Fall Risk Score Definition: No Risk: No action required Contraction Comments: PT DENIES CRAMPING Comments: PT STATES + FM Pain Presence: None/Denies Pain Type: N/A Membrane Status: Intact Vaginal Bleeding: None Datetime: 06/05/2018 20:00 Labor Evaluation Frequency: NONE Monitor Mode: External Resting Tone [place]: Relaxed Heart Rate FHR Baseline Rate: 130 Monitor Mode: External US Variability: Moderate 6-25 bpm Accelerations: None Decelerations: None Category: Category I Pain Presence: None/Denies Pain Type: N/A Datetime: 06/05/2018 18:50 Labor Evaluation Frequency: 3/hr Monitor Mode: External Quality: Mild Heart Rate FHR Baseline Rate: 140 Monitor Mode: External US Variability: Moderate 6-25 bpm Accelerations: 10X10 Decelerations: None Datetime: 06/05/2018 17:38 Pain Presence: None/Denies Datetime: 06/05/2018 17:00 Labor Evaluation Frequency: irreg Monitor Mode: External Duration (sec)2399: 50 Contraction Comments: pt. denies uc's, srom, bleeding Heart Rate FHR Baseline Rate: 145 Monitor Mode: External US Variability: Moderate 6-25 bpm Accelerations: 10X10 Datetime: 06/05/2018 16:09 Labor Evaluation Frequency: occassional Monitor Mode: External Duration (sec)2399: 50 Heart Rate FHR Baseline Rate: 140 Monitor Mode: External US Variability: Moderate 6-25 bpm Accelerations: 10X10 Decelerations: None Pain Presence: None/Denies Datetime: 06/05/2018 15:37 Pain Presence: None/Denies Datetime: 06/05/2018 15:02 Labor Evaluation Frequency: irregular Monitor Mode: External Duration (sec)2399: 40-50 Contraction Comments: pt. denies uc's Heart Rate FHR Baseline Rate: 135 Monitor Mode: External US Variability: Moderate 6-25 bpm Accelerations: 10X10 Decelerations: None Datetime: 06/05/2018 14:17 Fall Score: 0 Fall Risk Score Definition: No Risk: No action required Datetime: 06/05/2018 14:15 EGA: 34.5 Datetime: 06/05/2018 11:25 Fall Score: 0 Fall Risk Score Definition: No Risk: No action required Datetime: 06/05/2018 09:16 Time of Arrival: 06/05/2018 11:11 EGA: 34.5 Datetime: 05/09/2018 20:17 Fall Score: 0 Fall Risk Score Definition: No Risk: No action required Datetime: 05/08/2018 19:48 Fall Score: 0 Fall Risk Score Definition: No Risk: No action required Datetime: 05/08/2018 08:39 Fall Score: 20 Fall Risk Score Definition: No Risk: No action required Datetime: 05/07/2018 19:20 Fall Score: 0 Fall Risk Score Definition: No Risk: No action required Datetime: 05/06/2018 19:16 Fall Score: 0 Fall Risk Score Definition: No Risk: No action required Datetime: 05/05/2018 20:04 Fall Score: 20 Fall Risk Score Definition: No Risk: No action required Datetime: 05/05/2018 16:31 Fall Score: 0 Fall Risk Score Definition: No Risk: No action required Datetime: 05/05/2018 13:46 EGA: 30.2 Datetime: 03/13/2018 09:25 Membranes Ruptured Date/Time: 06/14/2018 21:00
[2018-06-15] MEDS ORDERED: BENZOCAINE 20% 56 ML SPRAY TOP PRN (03:30)
[2018-06-15] MEDS ORDERED: METHYLERGONOVINE 0.2 MG INJ IM PRN ×2 (03:30)
[2018-06-15] MEDS ORDERED: ZOLPIDEM 5 MG TAB PO PRN (03:30)
[2018-06-15] MEDS ORDERED: WITCH HAZEL/GLYCERIN PAD PR PRN (03:30)
[2018-06-15] MEDS ORDERED: CARBOPROST 250 MCG INJ IM PRN ×2 (03:30)
[2018-06-15] MEDS ORDERED: OXYCODONE/ASPIRIN (4.88/325) TAB PO PRN ×2 (03:30)
[2018-06-15] MEDS ORDERED: LANOLIN HPA 1 PKT TOP PRN (03:30)
[2018-06-15] MEDS ORDERED: OXYTOCIN 30 UNITS/LR 500 ML IV PRN ×2 (03:30)
[2018-06-15] MEDS ORDERED: MISOPROSTOL 200 MCG TAB PR PRN ×2 (03:30)
[2018-06-15] MEDS ORDERED: AMPICILLIN 1 GM/NS (PMX) 50 ML IV SCH (04:00)
[2018-06-15 04:23] VITALS: BP 110/62; PULSE 69; RESP 18
[2018-06-15] MEDS: IBUPROFEN 600 MG TAB PO SCH ×3 (06:00→18:08)
[2018-06-15 07:30] VITALS: BP 104/56; PULSE 64
[2018-06-15] MEDS: SENNA/DOCUSATE NA (8.6MG/50MG) TAB PO SCH (08:56)
[2018-06-15 15:41] VITALS: BP 99/56; PULSE 72; RESP 18
[2018-06-15 20:15] VITALS: BP 104/64; PULSE 69; RESP 19
--- NOTE | 2018-06-15 21:29 | PN ---
Date/Time of Note Date/Time of Note DATE: 06/15/18 TIME: 21:23 OB Subjective Subjective Subjective PPD# 0 Patient is doing well. She denies nausea, vomiting, shortness of breath, chest pain, headache. She has been ambulating without difficulty, tolerating regular diet. Pain is well controlled on current medications OB Objective Objective Objective VS - Last 72 Hours, by Label Date Temp Pulse Resp B/P (MAP) Pulse Ox O2 O2 Flow FiO2 Time Delivery Rate 06/15/18 98.3 72 18 99/56 (70) Room Air 15:41 06/15/18 98.3 64 104/56 Room Air 07:30 (72) 06/15/18 98.8 69 18 110/62 Room Air 04:23 (78) 06/14/18 98.1 71 18 118/73 Room Air 23:32 (88) General: AAO X 3, comfortable, NAD, appropriate mood and affect. ABD: +BS. Soft, non-tender. Uterus 2 cm below umbilicus Flank: No CVA tenderness (B/L) LE: Mild edema. No clubbing, cyanosis, thigh or calf tenderness (B/L). Homans 'sign is negative OB Assessment/Plan Other plan: 37 years old 5 para 2-2-1-4 s/p normal vaginal delivery at 36 weeks. PPD#0 - AF, VSS - Contraception methods with R/B/A/FR discussed - Continue care - Discharge home tomorrow - Rx and instruction given - Follow up in 2 and 6 weeks at clinic PARUL TONG June 15, 2018 21:29
--- NOTE | 2018-06-15 21:30 | DS ---
Date/Time of Note Date/Time of Note DATE: 06/15/18 TIME: 21:29 Obstetrical Discharge Record Final Diagnosis Final Diagnosis: delivered Other Final Diagnosis 37 years old 5 para 2-2-1-4 s/p normal vaginal delivery at 36 weeks. PPD#0. course is unremarkable. She is ambulating and tolerating regular diet. She is voiding without difficulty. Pain is controlled on current medication. - AF, VSS - Contraception methods with R/B/A/FR discussed - Continue care - Discharge home tomorrow - Rx and instruction given - Follow up in 2 and 6 weeks at clinic Vaginal Delivery Obstetrical Delivery: Spontaneous Condition on Discharge Physical Assessment Last Vitals: Vital Signs Date Temp Pulse Resp B/P (MAP) Pulse Ox O2 O2 Flow FiO2 Time Delivery Rate 06/15/18 98.3 72 18 99/56 (70) Room Air 15:41 Voiding: Yes Bowel Movement: Yes Breast: Soft, non-tender Fundus: Firm Calf Tenderness: No Patient Condition: Stable PARUL TONG June 15, 2018 21:30
[2018-06-16] MEDS: IBUPROFEN 600 MG TAB PO SCH ×5 (00:17→23:38)
[2018-06-16] MEDS: SENNA/DOCUSATE NA (8.6MG/50MG) TAB PO SCH ×3 (00:17→21:11)
[2018-06-16 01:40] VITALS: BP 138/83; PULSE 86; RESP 19
[2018-06-16 04:00] VITALS: BP 119/76; PULSE 76; RESP 19
[2018-06-16 08:30] VITALS: BP 96/52; PULSE 79; RESP 18
[2018-06-16 16:10] VITALS: BP 109/72; PULSE 74; RESP 18
[2018-06-16 20:00] VITALS: BP 126/63; PULSE 73; RESP 18
[2018-06-17 04:00] VITALS: BP 97/58; PULSE 82; RESP 18
[2018-06-17] MEDS: IBUPROFEN 600 MG TAB PO SCH (05:42)
[2018-06-17 08:05] VITALS: BP 115/61; PULSE 75; RESP 19
[2018-06-17] MEDS ORDERED: DIPHTH/TET/ACEL PERTUSS (ADULT) 0.5 ML VIAL IM* ONE (09:00)
[2018-06-17] MEDS: SENNA/DOCUSATE NA (8.6MG/50MG) TAB PO SCH (09:57)
--- NOTE | 2018-06-17 10:23 | DS ---
Date/Time of Note Date/Time of Note DATE: 06/17/18 TIME: Obstetrical Discharge Record Final Diagnosis Final Diagnosis: Term delivered Other Final Diagnosis 37 years old 5 para 2-2-1-4 s/p normal vaginal delivery at 36 weeks. PPD#2. course is unremarkable. She is ambulating and tolerating regular diet. She is voiding without difficulty. She initially was planning to go home yesterday, however as she delivered close to midnight on 06/14/18, stayed another day. pain is controlled on current medication. - AF, VSS - Contraception methods with R/B/A/FR discussed - Continue care - Discharge home - Rx and instruction given - Follow up in 2 and 6 weeks at clinic Condition on Discharge Physical Assessment Last Vitals: Vital Signs Date Temp Pulse Resp B/P (MAP) Pulse Ox O2 O2 Flow FiO2 Time Delivery Rate 06/17/18 97.8 82 18 97/58 (71) Room Air 04:00 Voiding: Yes Bowel Movement: Yes Breast: Soft, non-tender Fundus: Firm Calf Tenderness: No Patient Condition: Stable PARUL TONG June 17, 2018 10:23
--- NOTE | 2018-06-17 23:18 | NSTRPT ---
NST Information Datetime Report Generated by CPN: 06/17/2018 23:18 Datetime: 06/12/2018 09:13 NST Information EGA: 35.5 Time on Monitor: 06/12/2018 09:31 Time off Monitor: 06/12/2018 10:03 NST Duration (Min): 32 Test and Monitor Explained: Monitor Explained; Test Explained; Verbalized Understanding Pulse: 72 Resp: 18 SBP: 106 DBP: 67 Test Evaluation NST Interventions: Reposition Patient; Acoustic Stimulation NST Interventions Other: 0956 reposition to maternal left side 1000 FAS follwed by accel to 155 Patient States Movement: Present Contraction Frequency: none FHR Baseline : 140 Variability: Moderate 6-25bpm Accelerations: 15X15 Decelerations: None FHR Category: Category I NST Results: Reactive Comments: To u/s SUKHDEV 9.9 CM CEPHALIC FBS 88 Electronically Signed By E-Signature: with User ID: [id number] Datetime: 06/08/2018 13:57 NST Information EGA: 35.1 NST Duration (Min): 29 Datetime: 06/05/2018 09:11 NST Information EGA: 34.5 NST Duration (Min): 53 Datetime: 06/01/2018 09:17 NST Information EGA: 34.1 NST Duration (Min): 73 Datetime: 05/23/2018 10:45 NST Information EGA: 32.6 NST Duration (Min): 45 Datetime: 05/18/2018 08:52 NST Information EGA: 32.1 NST Duration (Min): 49 Datetime: 05/15/2018 09:07 NST Information EGA: 31.5 NST Duration (Min): 68
--- NOTE | 2018-06-18 13:09 | DELSUM ---
Delivery Summary A-C Datetime Report Generated by CPN: 06/18/2018 13:08 DELIVERY PERSONNEL Manager Of Organizational Development: Rosalina Vu MATERNAL INFORMATION Delivery Anesthesia: Local Medications in Delivery: PITOCIN, LIDOCAINE Delivery QBL (ml): 70 Placenta Cultured: No Maternal Complications: Other Other Maternal Complications: GDM-DIET CONTROL RN Comments: LABOR LABOR SUMMARY EDC: 07/12/2018 00:00 No. Babies in Womb: 1 Attempted: No Labor Anesthesia: None LABOR INFORMATION Reason for Induction: Not Applicable Onset of Labor: 06/14/2018 21:00 Complete Dilatation: 06/15/2018 00:39 Cervical Ripening Agents: Oxytocin: N/A Group B Beta Strep: UNKNOWN Antibiotics # of Doses: X1 AMPICILLIN 2 GRAMS Antibiotics Time of Last Dose: 06/15/2018 00:35 Steroids Given: Full Course Reason Steroids Not Administered: Not Applicable MEMBRANES Membranes Rupture Method: Spontaneous Rupture of Membranes: 06/14/2018 21:00 Length of Rupture (hr): 3.70 Amniotic Fluid Color: Clear Amniotic Fluid Amount: Moderate Amniotic Fluid Odor: Normal STAGES OF LABOR Stage 1 hr: 3 Stage 1 min: 39 Stage 2 hr: 0 Stage 2 min: 3 Stage 3 hr: 0 Stage 3 min: 8 Total Time in Labor hr: 3 Total Time in Labor min: 50 VAGINAL DELIVERY Episiotomy: None Laceration Extension: First Degree Laceration Type: Perineal Laceration Repair: Yes Initial Vag Sponge Count: 10 Final Vag Sponge Count: 10 Initial Vag Sharps Count: 1 Final Vag Sharps Count: 2 Sponge Count Correct: Yes Sharps Count Correct: Yes BABY A INFORMATION Delivery Date/Time: 06/15/2018 00:42 Method of Delivery: Vaginal Born in Route : No : N/A Forceps: N/A Vacuum Extraction: N/A Shoulder Dystocia : No SHOULDER DYSTOCIA BABY A Infant Delivery Date/Time: 06/15/2018 00:42 PRESENTATION/POSITION BABY A Presentation: Cephalic Cephalic Presentation: Vertex Vertex Position: Left Occipital Anterior Breech Presentation: N/A PLACENTA INFORMATION BABY A Placenta Delivery Time : 06/15/2018 00:50 Placenta Method of Delivery: Spontaneous Placenta Status: Delivered SCORES BABY A Heart Rate 1 min: >100 bpm Resp Effort 1 min: Good Cry Reflex Irritability 1 min: Cough/Sneeze/Pulls Away Muscle Tone 1 min: Active Motion Color 1 min: Body [place], Extremit Blue Resuscitation Effort 1 min: Tactile Stimulation SCORE 1 MIN: 9 Heart Rate 5 min: >100 bpm Resp Effort 5 min: Good Cry Reflex Irritability 5 min: Cough/Sneeze/Pulls Away Muscle Tone 5 min: Active Motion Color 5 min: Body [place], Extremit Blue Resuscitation Effort 5 min: Tactile Stimulation SCORE 5 MIN: 9 INFANT INFORMATION BABY A Gestational Age at Delivery: 36.1 Gestational Status: Late - 34- 36.6 Weeks Infant Outcome : Liveborn Infant Condition : Stable Infant Sex: Male IDENTIFICATION/MEDS BABY A ID Band Number: [id number] ID Band Location: Right Leg; Left Arm Sensor Applied: Yes Sensor Number: [id number] Sensor Location : Cord Clamp Vitamin K Given : Not Given Erythromycin Given: Not Given WEIGHT/LENGTH BABY A Birthweight (gm): 3115 Infant Weight (lb): 6 Infant Weight (oz): 14 Infant Length (in): 19.00 Infant Length (cm): 48.26 CORD INFORMATION BABY A No. Cord Vessels: 3 Nuchal Cord : N/A Cord Blood Taken: Yes Infant Suction: Mouth; Nose ASSESSMENT BABY A Complications: None Physical Findings at Delivery: Within Normal Limits Infant Respirations: Appears Normal Manager Mass/ALS Called : No Care By: Lora PERDOMO RN Transferred To: Remains with Mother
== END 2018-06-17 13:08 | disposition home or self-care (01) | DRG 805 ==
LOC: L-D 23:08 → OBT 23:08 → L-D 23:55 → OBT 23:55 → L-D 06-15 00:29 → PP1 06-15 18:04
PROVIDERS: ADMIT Obstetrics & Gynecology; ATTEND Obstetrics & Gynecology
PROC: 10E0XZZ Delivery of Products of Conception, External Approach (ICD-10-PCS; principal; 2018-06-15)
PROC: 0HQ9XZZ Repair Perineum Skin, External Approach (ICD-10-PCS; 2018-06-15)
DX: O70.0 First degree perineal laceration during delivery (principal); O60.13X0 Preterm labor second trimester with preterm delivery third trimester, not applicable or unspecified; Z37.0 Single live birth; O13.3 Gestational [pregnancy-induced] hypertension without significant proteinuria, third trimester; Z3A.36 36 weeks gestation of pregnancy
CPT/HCPCS: 80307; 82947; 85025; 85610; 85730; 86592; 86850; 86900; 86901; 87340; G0463; J0290; J2590; J7120